=== PATIENT | male | born 1945 | race Caucasian/White ===

== ENCOUNTER → 2017-06-10 | Outpatient (CLI) | payer MEDICARE ==
[~2017-06-10] MED LIST: AMLO10TA2 PO; ASPI-1012 PO; ASPI-1197 PO; CALC600T12 PO; CARV12.511 PO; CHOL100018 PO; GLIM4TAB3 PO; HYDR-309 PO; LOSA100T29 PO; METF10004 PO; PRAV40TA3 PO; TAMS0.4C32 PO; TERA5CAP4 PO; TRAM50TA4 PO
== END | disposition home or self-care (01) ==
LOC: RAH 13:35
PROVIDERS: ATTEND Physical Medicine & Rehabilitation
DX: M48.061 Spinal stenosis, lumbar region without neurogenic claudication (principal); M51.26 Other intervertebral disc displacement, lumbar region; I10 Essential (primary) hypertension; E11.9 Type 2 diabetes mellitus without complications; E03.9 Hypothyroidism, unspecified; E78.5 Hyperlipidemia, unspecified; I25.10 Atherosclerotic heart disease of native coronary artery without angina pectoris
CPT/HCPCS: 72148

== ENCOUNTER → 2017-08-23 | Outpatient (CLI) | payer MEDICARE | END | disposition home or self-care (01) | LOC: RAH 11:30 | PROVIDERS: ATTEND Physical Medicine & Rehabilitation | DX: R22.42 Localized swelling, mass and lump, left lower limb (principal) | CPT/HCPCS: 93971 ==

== ENCOUNTER → 2018-05-09 | Outpatient (CLI) | payer MEDICARE ==
[~2018-05-09] MED LIST changes: -AMLO10TA2 PO; +AMLO10TA7 PO; -HYDR-309 PO; +HYDR-4457 PO; -LOSA100T29 PO; +LOSA100T58 PO; +METF-446 PO; -METF10004 PO
== END | disposition home or self-care (01) ==
LOC: RAH 08:43
PROVIDERS: ATTEND Internal Medicine
DX: I11.9 Hypertensive heart disease without heart failure (principal); I35.1 Nonrheumatic aortic (valve) insufficiency; E87.79 Other fluid overload; I31.3 Pericardial effusion (noninflammatory)
CPT/HCPCS: 93306

== ENCOUNTER → 2018-06-30 | Outpatient (CLI) | payer OTHER | END | disposition home or self-care (01) | LOC: RAH 10:46 | PROVIDERS: ATTEND Internal Medicine Cardiovascular Disease | DX: Z13.6 Encounter for screening for cardiovascular disorders (principal) | CPT/HCPCS: 75571 ==

== ENCOUNTER → 2018-07-06 | Outpatient (CLI) | payer MEDICARE | END | disposition home or self-care (01) | LOC: RAH 14:52 | PROVIDERS: ATTEND Physical Medicine & Rehabilitation | DX: M47.812 Spondylosis without myelopathy or radiculopathy, cervical region (principal); M48.02 Spinal stenosis, cervical region | CPT/HCPCS: 72052 ==

== ENCOUNTER → 2018-08-23 | Outpatient (CLI) | payer MEDICARE ==
[~2018-08-23] VITALS: Ht 188 cm; Wt 122.5 kg
[~2018-08-23] MED LIST changes: +REGADENOSON 0.4 MG/5 ML PF SYG IVP SCH
== END | disposition home or self-care (01) ==
LOC: SHCH 07:51
PROVIDERS: ATTEND Internal Medicine Cardiovascular Disease
DX: I25.9 Chronic ischemic heart disease, unspecified (principal); I25.10 Atherosclerotic heart disease of native coronary artery without angina pectoris
CPT/HCPCS: 78452; 93017; 96374; A9500 ×2; J2785

== ENCOUNTER → 2018-10-03 | Outpatient (CLI) | payer MEDICARE ==
[~2018-10-03] MED LIST changes: -REGADENOSON 0.4 MG/5 ML PF SYG IVP SCH
== END | disposition home or self-care (01) ==
LOC: RAH 09:47
PROVIDERS: ATTEND Internal Medicine
DX: R05 Cough (principal)
CPT/HCPCS: 71046

== ENCOUNTER → 2019-01-04 | Outpatient (CLI) | payer MEDICARE ==
[~2019-01-04] MED LIST changes: -GLIM4TAB3 PO; +GLIM4TAB5 PO; +IOHEXOL-350 50ML VIAL IV ONE
== END | disposition home or self-care (01) ==
LOC: RAH 12:27
PROVIDERS: ATTEND Internal Medicine
DX: R05 Cough (principal); I51.7 Cardiomegaly; Z77.22 Contact with and (suspected) exposure to environmental tobacco smoke (acute) (chronic)
CPT/HCPCS: 71260; Q9967

== ENCOUNTER → 2019-02-09 | Outpatient (CLI) | payer MEDICARE ==
[~2019-02-09] MED LIST changes: -IOHEXOL-350 50ML VIAL IV ONE
== END | disposition home or self-care (01) ==
LOC: RAH 07:10
PROVIDERS: ATTEND Physical Medicine & Rehabilitation
DX: M47.812 Spondylosis without myelopathy or radiculopathy, cervical region (principal); M47.817 Spondylosis without myelopathy or radiculopathy, lumbosacral region; M48.02 Spinal stenosis, cervical region; M48.061 Spinal stenosis, lumbar region without neurogenic claudication
CPT/HCPCS: 72141; 72148

== ENCOUNTER → 2019-05-11 | Outpatient (CLI) | payer MEDICARE ==
[~2019-05-11] MED LIST changes: -ASPI-1012 PO; -CALC600T12 PO; -CHOL100018 PO; +FISH1CAP63 PO; +GABA-531 PO; +GLIM4TAB36 PO; -GLIM4TAB5 PO; -HYDR-4457 PO; +HYDR25TA PO; +MONT10TA26 PO; +PENI500T2 PO; -TAMS0.4C32 PO; -TERA5CAP4 PO; -TRAM50TA4 PO
== END | disposition home or self-care (01) ==
LOC: RAH 11:05
PROVIDERS: ATTEND Physical Medicine & Rehabilitation
DX: I63.81 Other cerebral infarction due to occlusion or stenosis of small artery (principal); I67.82 Cerebral ischemia; G45.9 Transient cerebral ischemic attack, unspecified
CPT/HCPCS: 70551

== ENCOUNTER 2020-01-09 10:32 | Inpatient (IN) | payer MEDICARE ==
[~2020-01-09] VITALS: Ht 188 cm; Wt 113.4 kg
[~2020-01-09 10:32] MED LIST changes: +AMLO-258 PO; -AMLO10TA7 PO; -MONT10TA26 PO; +MONT10TA96 PO
[2020-01-09 11:44] LABS: ABG BASE EXCESS 0.8 mmol/L (-2.0-3.0); ABG HCO3 24.4 mmol/L (21.0-28.0); ABG PCO2 36 mmHg (35-48)
[2020-01-09 11:45] LABS: BASOPHILS % (AUTO) 0.6 % (0.0-5.0); EOSINOPHILS % (AUTO) 0.3 % (0.0-8.0); LYMPHOCYTES % (AUTO) 8.2 % (21.0-51.0); MEAN CORPUSCULAR HEMOGLOBIN 28.8 pg (27.0-33.0); MEAN CORPUSCULAR HGB CONC 32.6 g/dL (32.0-36.0); MEAN CORPUSCULAR VOLUME 88.4 fL (79-99); MONOCYTES % (AUTO) 9.4 % (3.0-13.0); NEUTROPHILS % (AUTO) 81.2 % (40.0-77.0); PLATELET COUNT (AUTO) 167 K/uL (130-400); RED BLOOD CELL COUNT(AUTO) 3.96 MIL/uL (4.50-6.20); RED CELL DISTRIBUTION WIDTH 12.7 % (11.0-15.5); WHITE BLOOD COUNT (AUTO) 8.8 K/uL (4.8-10.8)
[2020-01-09] MEDS ORDERED: METHYLPREDNISOLONE SOD SUCC 125MG/2ML VIAL ONE (11:53)
[2020-01-09 11:57] LABS: PARTIAL THROMBOPLASTIN TIME 28.1 SEC (26.3-35.5); PROTHROMBIN TIME 10.8 SEC (9.6-11.6)
[2020-01-09] MEDS ORDERED: ALBUTEROL INHALER 90MCG/INH IH ONE (11:58)
[2020-01-09] MEDS ORDERED: LEVOFLOXACIN 500 MG/D5W 100 ML 100 ML ONE (11:59)
[2020-01-09] MEDS ORDERED: DEXAMETHASONE SOD PHOSPHATE 10MG/ML 1ML VIAL ONE (11:59)
[2020-01-09] MEDS ORDERED: CEFTRIAXONE SODIUM 1 GM ONE (12:25)
[2020-01-09] MEDS ORDERED: AZITHROMYCIN 500MG+NS 250ML 250 ML IV ONE (12:25)
[2020-01-09] MEDS ORDERED: SODIUM CHLORIDE 0.9% 50 ML IV ONE (12:26)
[2020-01-09 12:38] LABS: ALANINE AMINOTRANSFERASE 43 U/L (12-78); ALBUMIN 3.4 g/dL (3.5-5.0); ASPARTATE AMINOTRANSFERASE 48 U/L (10-37); BILIRUBIN,TOTAL 1.5 mg/dL (0.2-1.0); CARBON DIOXIDE 27 mmol/L (21-32); CHLORIDE 97 mmol/L (101-111); CREATININE 1.7 mg/dL (0.5-1.5); GLOMERULAR FILTR. RATE CALC 42 mL/min (>60); GLUCOSE,RANDOM 144 mg/dL (70-105); MYOGLOBIN 344 ng/mL (10-92); SODIUM SERUM 136 mmol/L (136-145); TOTAL PROTEIN, SERUM 6.9 g/dL (6.0-8.3); TROPONIN I < 0.04 ng/mL (0.00-0.06); UREA NITROGEN, BLOOD 29 mg/dL (7-18)
[2020-01-09] MEDS ORDERED: SODIUM CHLORIDE 0.9% 1000ML 1,000 ML IV ONE (12:41)
[2020-01-09 13:27] LABS: CREATINE KINASE, TOTAL 435 U/L (21-232); POTASSIUM 2.9 mmol/L (3.5-5.1)
[2020-01-09] MEDS ORDERED: PHARMACY COMMUNICATION**REMDESIVIR ORDER MISC SCH (13:30)
[2020-01-09] MEDS ORDERED: DOXYCYCLINE 100MG+NS 250ML IV SCH (13:30)
[2020-01-09] MEDS ORDERED: ERGOCALCIFEROL (VITAMIN D2) 50,000 UNIT CAPSULE PO ONE (13:30)
[2020-01-09 14:42] LABS: ERYTHROCYTE SEDIMENTATION RATE 32 MM/HR (0-20)
[2020-01-09] MEDS ORDERED: ALBUTEROL INHALER 90MCG/INH IH PRN (15:15)
[2020-01-09] MEDS ORDERED: ERGOCALCIFEROL (VITAMIN D2) 50,000 UNIT CAPSULE ONE (15:31)
[2020-01-09] MEDS ORDERED: DOXYCYCLINE 100MG+NS 250ML 250 ML IV ONE (15:31)
[2020-01-09] MEDS ORDERED: SODIUM CHLORIDE 0.9% 500ML 500 ML IV ONE (16:58)
[2020-01-09 17:53] LABS: APPEARANCE,URINE Clear (CLEAR); BILIRUBIN,URINE Negative (NEGATIVE); COLOR,URINE Dark Yellow (YELLOW); GLUCOSE, URINE (UA) 250 mg/dL (NEGATIVE); KETONES,URINE Negative (NEGATIVE); LEUKOCYTE ESTERASE ,URINE Negative (NEGATIVE); NITRATE,URINE Negative (NEGATIVE); OCCULT BLOOD,URINE Negative (NEGATIVE); PH,URINE 5.5 (5.0-8.0); PROTEIN,URINE POS 1+ mg/dL (NEGATIVE)
[2020-01-09 18:02] LABS: RBC,URINE 0-1 /HPF (0-1); WBC,URINE 0-1 /HPF (0-1)
[2020-01-09 18:03] LABS: BACTERIA,URINE Rare /HPF (None Seen)
[2020-01-09 18:04] LABS: HYALINE CASTS, URINE 0-1 /LPF (0-1 /LPF); SQUAMOUS EPITHELIAL CELL,UR Few /HPF (0-2)
[2020-01-09] MEDS ORDERED: ACETYLCYSTEINE 600 MG CAPSULE ONE (20:27)
[2020-01-10] VITALS (15 sets, daily range): BP systolic 142–182; BP diastolic 71–93
[2020-01-10] MEDS ORDERED: CEFTRIAXONE SODIUM 1 GM ONE (00:37)
[2020-01-10] MEDS ORDERED: SODIUM CHLORIDE 0.9% 50 ML IV ONE (00:41)
[2020-01-10 04:59] LABS: BASOPHILS % (AUTO) 0.2 % (0.0-5.0); LYMPHOCYTES % (AUTO) 3.4 % (21.0-51.0); MEAN CORPUSCULAR HEMOGLOBIN 29.2 pg (27.0-33.0); MEAN CORPUSCULAR HGB CONC 33.4 g/dL (32.0-36.0); MEAN CORPUSCULAR VOLUME 87.4 fL (79-99); MONOCYTES % (AUTO) 4.9 % (3.0-13.0); NEUTROPHILS % (AUTO) 91.1 % (40.0-77.0); PLATELET COUNT (AUTO) 188 K/uL (130-400); RED BLOOD CELL COUNT(AUTO) 4.35 MIL/uL (4.50-6.20); RED CELL DISTRIBUTION WIDTH 12.6 % (11.0-15.5); WHITE BLOOD COUNT (AUTO) 12.2 K/uL (4.8-10.8)
[2020-01-10 05:27] LABS: ALBUMIN 3.5 g/dL (3.5-5.0); BILIRUBIN,TOTAL 0.9 mg/dL (0.2-1.0); CREATININE 1.4 mg/dL (0.5-1.5); POTASSIUM 3.1 mmol/L (3.5-5.1); TOTAL PROTEIN, SERUM 7.9 g/dL (6.0-8.3)
[2020-01-10 05:33] LABS: CRP QUANTITATIVE 196.9 mg/L (0.00-9.0)
[2020-01-10] MEDS ORDERED: ENOXAPARIN SODIUM 60 MG/0.6 ML SQ ONE (08:12)
[2020-01-10] MEDS ORDERED: ONDANSETRON HCL 4 MG/2 ML VIAL IVP PRN (08:45)
[2020-01-10] MEDS ORDERED: INSULIN HUMULIN R 100 UNIT/ML 3ML ONE (08:58)
[2020-01-10] MEDS ORDERED: GLUCAGON 1MG KIT 1 MG ML IM PRN (09:15)
[2020-01-10] MEDS ORDERED: DEXTROSE 50%-WATER 50 ML DISP.SYRIN IV PRN (09:15)
[2020-01-10] MEDS: DEXAMETHASONE SOD PHOSPHATE 4 MG/ML 1ML VIAL IVP SCH ×2 (11:26→14:59)
[2020-01-10] MEDS: CEFTRIAXONE SODIUM 1 GM IVP SCH ×3 (11:26→14:59)
[2020-01-10] MEDS: ASCORBIC ACID 500 MG TAB PO SCH (11:27)
[2020-01-10] MEDS: ACETYLCYSTEINE 600 MG CAPSULE PO SCH ×3 (11:27→19:47)
[2020-01-10] MEDS: DOXYCYCLINE 100MG+NS 250ML 250 ML IV SCH ×3 (11:27→14:59)
[2020-01-10] MEDS: ZINC SULFATE 220 CAPSULE PO SCH (11:27)
[2020-01-10] MEDS: ENOXAPARIN SODIUM 60 MG/0.6 ML SQ SCH (11:27)
[2020-01-10] MEDS: INSULIN HUMULIN R 100 UNIT/ML 3ML SQ SCH ×3 (11:30→21:00)
[2020-01-10] MEDS ORDERED: TRAM50TA4 PO (13:39)
[2020-01-10] MEDS ORDERED: OMEG-61 PO (13:39)
[2020-01-10] MEDS ORDERED: CARV12.511 PO (13:39)
[2020-01-10] MEDS ORDERED: PRAV40TA3 PO (13:39)
[2020-01-10] MEDS ORDERED: METH4TAB3 PO (13:39)
[2020-01-10] MEDS ORDERED: AMLO-258 PO (13:39)
[2020-01-10] MEDS ORDERED: GLIM4TAB36 PO (13:39)
[2020-01-10] MEDS ORDERED: METF-446 PO (13:39)
[2020-01-10] MEDS ORDERED: CETI10TA57 PO (13:39)
[2020-01-10] MEDS ORDERED: MELA10TA2 PO (13:39)
[2020-01-10] MEDS ORDERED: HYDR25TA PO (13:39)
[2020-01-10] MEDS ORDERED: ALBU2.5V2 IH (13:39)
[2020-01-10] MEDS ORDERED: LOSA100T58 PO (13:39)
[2020-01-10] MEDS ORDERED: CHOL400C9 PO (13:39)
[2020-01-10] MEDS ORDERED: FLUT15.845 NS (13:39)
[2020-01-10] MEDS ORDERED: AEC81 PO (13:39)
[2020-01-10] MEDS ORDERED: MONT10TA96 PO (13:39)
[2020-01-10] MEDS ORDERED: REMDESIVIR (EUA) 520 200 MG in SODIUM CHLORIDE 0.9% 250 ML IV ONE (14:00)
[2020-01-10] MEDS ORDERED: COMPOUND IV REFRIGERATED 1 EACH IVSOLN MISC PRN (14:00)
[2020-01-10] MEDS ORDERED: DEXMEDETOMIDINE HCL 400 MCG in SODIUM CHLORIDE 0.9% 100 ML IV SCH (14:45)
[2020-01-10] MEDS: POTASSIUM CHLORIDE 20 MEQ ERTAB PO PRN ×2 (15:07→21:32)
[2020-01-10] MEDS ORDERED: FAMOTIDINE 20MG TAB 20 MG TAB ONE (19:30)
[2020-01-10] MEDS: FAMOTIDINE/PF 20 MG/2 ML VIAL IV SCH (19:46)
[2020-01-10] MEDS ORDERED: ENOXAPARIN SODIUM 30 MG/0.3 ML SQ SCH (21:00)
[2020-01-10] MEDS ORDERED: TEMAZEPAM 15 MG CAPSULE PO ONE (21:10)
[2020-01-10] MEDS: LOSARTAN 100 MG TABLET PO SCH (22:28)
[2020-01-10] MEDS: HYDROCHLOROTHIAZIDE 25 MG TABLET PO SCH (22:28)
[2020-01-10] MEDS: CARVEDILOL 12.5 MG TABLET PO SCH (22:28)
[2020-01-10] MEDS: AMLODIPINE BESYLATE 5 MG TAB PO SCH (22:29)
[2020-01-11] VITALS (48 sets, daily range): BP systolic 116–175; BP diastolic 55–108
[2020-01-11] MEDS: DOXYCYCLINE 100MG+NS 250ML 250 ML IV SCH ×2 (02:37→21:16)
[2020-01-11] MEDS: CEFTRIAXONE SODIUM 1 GM IVP SCH ×2 (02:37→21:16)
[2020-01-11] MEDS: POTASSIUM CHLORIDE 20 MEQ ERTAB PO PRN (02:39)
[2020-01-11] MEDS: GUAIFENESIN-DM 200/20 MG 10 ML PO PRN ×2 (03:20→07:52)
[2020-01-11 05:16] LABS: BASOPHILS % (AUTO) 0.2 % (0.0-5.0); EOSINOPHILS % (AUTO) 0.3 % (0.0-8.0); HEMATOCRIT 39.8 % (42-54); LYMPHOCYTES % (AUTO) 2.8 % (21.0-51.0); MEAN CORPUSCULAR HEMOGLOBIN 28.8 pg (27.0-33.0); MEAN CORPUSCULAR HGB CONC 32.7 g/dL (32.0-36.0); MEAN CORPUSCULAR VOLUME 88.2 fL (79-99); MONOCYTES % (AUTO) 3.7 % (3.0-13.0); NEUTROPHILS % (AUTO) 92.2 % (40.0-77.0); PLATELET COUNT (AUTO) 224 K/uL (130-400); RED BLOOD CELL COUNT(AUTO) 4.51 MIL/uL (4.50-6.20); RED CELL DISTRIBUTION WIDTH 12.7 % (11.0-15.5); WHITE BLOOD COUNT (AUTO) 15.6 K/uL (4.8-10.8)
[2020-01-11 05:36] LABS: ALBUMIN 2.9 g/dL (3.5-5.0); BILIRUBIN,TOTAL 0.8 mg/dL (0.2-1.0); CREATININE 1.2 mg/dL (0.5-1.5); TOTAL PROTEIN, SERUM 6.8 g/dL (6.0-8.3)
[2020-01-11 05:46] LABS: POTASSIUM 2.8 mmol/L (3.5-5.1)
[2020-01-11] MEDS ORDERED: PHARMACY COMMUNICATION MISC SCH (06:00)
[2020-01-11 06:06] LABS: CRP QUANTITATIVE 246.4 mg/L (0.00-9.0)
[2020-01-11] MEDS: POTASSIUM CHLORIDE 20MEQ/100ML 100 ML IV PRN ×4 (06:12→18:27)
[2020-01-11] MEDS: INSULIN HUMULIN R 100 UNIT/ML 3ML SQ SCH ×4 (06:19→21:38)
[2020-01-11 07:24] LABS: ABG PCO2 35 mmHg (35-48)
[2020-01-11] MEDS: FAMOTIDINE/PF 20 MG/2 ML VIAL IV SCH ×2 (07:49→21:16)
[2020-01-11] MEDS: ENOXAPARIN SODIUM 60 MG/0.6 ML SQ SCH (07:51)
[2020-01-11] MEDS: ASCORBIC ACID 500 MG TAB PO SCH (07:52)
[2020-01-11] MEDS: AMLODIPINE BESYLATE 5 MG TAB PO SCH (07:53)
[2020-01-11] MEDS: ZINC SULFATE 220 CAPSULE PO SCH (07:53)
[2020-01-11] MEDS: ACETYLCYSTEINE 600 MG CAPSULE PO SCH ×2 (07:54→21:17)
[2020-01-11] MEDS: HYDROCHLOROTHIAZIDE 25 MG TABLET PO SCH (07:54)
[2020-01-11] MEDS: CARVEDILOL 12.5 MG TABLET PO SCH ×2 (07:56→21:17)
[2020-01-11] MEDS: LOSARTAN 100 MG TABLET PO SCH (07:56)
[2020-01-11 08:24] LABS: ALBUMIN 2.9 g/dL (3.5-5.0); BILIRUBIN,DIRECT 0.3 mg/dL (0.0-0.3); BILIRUBIN,TOTAL 0.9 mg/dL (0.2-1.0); CREATININE 1.2 mg/dL (0.5-1.5); TOTAL PROTEIN, SERUM 5.9 g/dL (6.0-8.3)
[2020-01-11] MEDS ORDERED: HYDROCHLOROTHIAZIDE 25 MG TABLET PO SCH (09:00)
[2020-01-11] MEDS ORDERED: NON-FORMULARY MEDICATION 1 EACH (Amlodipine Besylate 10 MG) PO SCH (09:00)
[2020-01-11] MEDS ORDERED: AMLODIPINE BESYLATE 5 MG TAB PO SCH (09:00)
[2020-01-11] MEDS ORDERED: CARVEDILOL 12.5 MG TABLET PO SCH (09:00)
[2020-01-11] MEDS ORDERED: LOSARTAN 100 MG TABLET PO SCH (09:00)
[2020-01-11] MEDS: LIDOCAINE HCL-MPF 1% 2ML VIAL IV PRN (10:00)
[2020-01-11] MEDS: DEXAMETHASONE SOD PHOSPHATE 4 MG/ML 1ML VIAL IVP SCH (13:30)
[2020-01-11] MEDS: REMDESIVIR (EUA) 520 100 MG in SODIUM CHLORIDE 0.9% 250 ML IV SCH (14:20)
[2020-01-11] MEDS: ENOXAPARIN SODIUM 40 MG/0.4 ML SYRINGE SQ SCH (21:17)
[2020-01-12] VITALS (33 sets, daily range): BP systolic 129–176; BP diastolic 59–111
[2020-01-12 04:12] LABS: BASOPHILS % (AUTO) 0.1 % (0.0-5.0); HEMATOCRIT 38.4 % (42-54); LYMPHOCYTES % (AUTO) 2.3 % (21.0-51.0); MEAN CORPUSCULAR HEMOGLOBIN 28.8 pg (27.0-33.0); MEAN CORPUSCULAR HGB CONC 33.3 g/dL (32.0-36.0); MEAN CORPUSCULAR VOLUME 86.5 fL (79-99); MONOCYTES % (AUTO) 4.1 % (3.0-13.0); NEUTROPHILS % (AUTO) 92.9 % (40.0-77.0); PLATELET COUNT (AUTO) 243 K/uL (130-400); RED BLOOD CELL COUNT(AUTO) 4.44 MIL/uL (4.50-6.20); RED CELL DISTRIBUTION WIDTH 12.4 % (11.0-15.5); WHITE BLOOD COUNT (AUTO) 14.1 K/uL (4.8-10.8)
[2020-01-12 04:45] LABS: ALBUMIN 2.8 g/dL (3.5-5.0); BILIRUBIN,TOTAL 0.7 mg/dL (0.2-1.0); CREATININE 1.2 mg/dL (0.5-1.5); TOTAL PROTEIN, SERUM 6.5 g/dL (6.0-8.3)
[2020-01-12 05:06] LABS: POTASSIUM 2.9 mmol/L (3.5-5.1)
[2020-01-12] MEDS: POTASSIUM CHLORIDE 10% ELIXIR 20 MEQ/15 ML UDCUP PO PRN (05:25)
[2020-01-12] MEDS: INSULIN HUMULIN R 100 UNIT/ML 3ML SQ SCH ×4 (06:22→21:00)
[2020-01-12] MEDS: DOXYCYCLINE 100MG+NS 250ML 250 ML IV SCH ×2 (10:12→21:04)
[2020-01-12] MEDS: CEFTRIAXONE SODIUM 1 GM IVP SCH ×2 (10:14→21:04)
[2020-01-12] MEDS: ACETYLCYSTEINE 600 MG CAPSULE PO SCH ×2 (10:15→21:03)
[2020-01-12] MEDS: FAMOTIDINE/PF 20 MG/2 ML VIAL IV SCH ×2 (10:15→21:04)
[2020-01-12] MEDS: ASCORBIC ACID 500 MG TAB PO SCH (10:15)
[2020-01-12] MEDS: AMLODIPINE BESYLATE 5 MG TAB PO SCH (10:16)
[2020-01-12] MEDS: ENOXAPARIN SODIUM 40 MG/0.4 ML SYRINGE SQ SCH ×2 (10:16→21:06)
[2020-01-12] MEDS: CARVEDILOL 12.5 MG TABLET PO SCH ×2 (10:18→21:03)
[2020-01-12] MEDS: ZINC SULFATE 220 CAPSULE PO SCH (10:21)
[2020-01-12] MEDS: METFORMIN HCL 500 MG TABLET PO SCH ×2 (12:08→17:12)
[2020-01-12] MEDS: HYDROCHLOROTHIAZIDE 25 MG TABLET PO SCH (12:08)
[2020-01-12] MEDS: LOSARTAN 100 MG TABLET PO SCH (12:08)
[2020-01-12] MEDS: DOXAZOSIN MESYLATE 2 MG TABLET PO SCH (12:23)
[2020-01-12] MEDS: DEXAMETHASONE SOD PHOSPHATE 4 MG/ML 1ML VIAL IVP SCH (13:19)
[2020-01-12] MEDS: REMDESIVIR (EUA) 520 100 MG in SODIUM CHLORIDE 0.9% 250 ML IV SCH (15:14)
[2020-01-12] MEDS: MONTELUKAST SODIUM 10 MG TAB PO SCH (21:04)
[2020-01-12] MEDS: CLONAZEPAM 0.5 MG TABLET PO SCH (21:04)
[2020-01-13] VITALS (63 sets, daily range): BP systolic 99–165; BP diastolic 45–90
[2020-01-13 04:50] LABS: ABG BASE EXCESS -0.3 mmol/L (-2.0-3.0); ABG HCO3 22.8 mmol/L (21.0-28.0); ABG OXYGEN SATURATION 83.9 % (95.0-99.0); ABG PCO2 33 mmHg (35-48)
[2020-01-13 05:44] LABS: CRP QUANTITATIVE 178.6 mg/L (0.00-9.0); MAGNESIUM 2.1 mg/dL (1.80-2.40)
[2020-01-13] MEDS ORDERED: NOREPINEPHRINE 4MG/NS 250ML 250 ML IV PRN (06:30)
[2020-01-13] MEDS ORDERED: LACTATED RINGERS 1000ML IV SCH (06:30)
[2020-01-13] MEDS ORDERED: DOPAMINE HCL 400 MG/D5%-WATER 250 ML IV PRN (06:30)
[2020-01-13] MEDS ORDERED: FENTANYL CITRATE PF 0.05 MG/ML 1,000 MCG in SODIUM CHLORIDE 0.9% 100 ML IVPB SCH (06:30)
[2020-01-13] MEDS: INSULIN HUMULIN R 100 UNIT/ML 3ML SQ SCH ×4 (07:30→21:00)
[2020-01-13] MEDS: METFORMIN HCL 500 MG TABLET PO SCH ×2 (08:00→17:00)
[2020-01-13] MEDS ORDERED: LACTATED RINGERS 1000ML 1,000 ML IV SCH (08:45)
[2020-01-13] MEDS ORDERED: LACTATED RINGERS 1000ML 250 ML IV SCH (08:45)
[2020-01-13] MEDS: CLONAZEPAM 0.5 MG TABLET PO SCH ×2 (09:00→21:00)
[2020-01-13] MEDS: LOSARTAN 100 MG TABLET PO SCH (09:00)
[2020-01-13] MEDS: DOXAZOSIN MESYLATE 2 MG TABLET PO SCH (09:00)
[2020-01-13] MEDS: HYDROCHLOROTHIAZIDE 25 MG TABLET PO SCH (09:00)
[2020-01-13] MEDS: AMLODIPINE BESYLATE 5 MG TAB PO SCH (09:00)
[2020-01-13] MEDS: CARVEDILOL 12.5 MG TABLET PO SCH ×2 (09:00→21:00)
[2020-01-13] MEDS ORDERED: FENTANYL 2500MCG+NS 250ML 250 ML IV SCH (09:00)
[2020-01-13] MEDS: ASCORBIC ACID 500 MG TAB PO SCH (09:00)
[2020-01-13] MEDS: ACETYLCYSTEINE 600 MG CAPSULE PO SCH ×2 (09:00→21:00)
[2020-01-13] MEDS: ZINC SULFATE 220 CAPSULE PO SCH (09:00)
[2020-01-13 09:14] LABS: BASOPHILS % (AUTO) 0.1 % (0.0-5.0); HEMATOCRIT 40.1 % (42-54); LYMPHOCYTES % (AUTO) 2.7 % (21.0-51.0); MEAN CORPUSCULAR HEMOGLOBIN 28.8 pg (27.0-33.0); MEAN CORPUSCULAR HGB CONC 32.4 g/dL (32.0-36.0); MEAN CORPUSCULAR VOLUME 88.7 fL (79-99); MONOCYTES % (AUTO) 4.4 % (3.0-13.0); NEUTROPHILS % (AUTO) 92.3 % (40.0-77.0); PLATELET COUNT (AUTO) 292 K/uL (130-400); RED BLOOD CELL COUNT(AUTO) 4.52 MIL/uL (4.50-6.20); RED CELL DISTRIBUTION WIDTH 12.8 % (11.0-15.5); WHITE BLOOD COUNT (AUTO) 14.6 K/uL (4.8-10.8)
[2020-01-13 09:37] LABS: ALBUMIN 2.7 g/dL (3.5-5.0); BILIRUBIN,TOTAL 0.5 mg/dL (0.2-1.0); PHOSPHORUS 4.4 mg/dL (2.5-4.9); TOTAL PROTEIN, SERUM 6.3 g/dL (6.0-8.3)
[2020-01-13] MEDS: CEFTRIAXONE SODIUM 1 GM IVP SCH ×2 (09:59→21:55)
[2020-01-13] MEDS: FAMOTIDINE/PF 20 MG/2 ML VIAL IV SCH ×2 (09:59→21:55)
[2020-01-13] MEDS: DOXYCYCLINE 100MG+NS 250ML 250 ML IV SCH ×2 (10:00→21:55)
[2020-01-13] MEDS: ENOXAPARIN SODIUM 40 MG/0.4 ML SYRINGE SQ SCH ×2 (10:00→21:59)
[2020-01-13 10:02] LABS: B-TYPE NATRIURETIC PEPTIDE 101 pg/mL (0-100)
[2020-01-13 10:05] LABS: CREATININE 1.3 mg/dL (0.5-1.5); POTASSIUM 2.6 mmol/L (3.5-5.1)
[2020-01-13] MEDS: LIDOCAINE HCL-MPF 1% 2ML VIAL IV PRN ×2 (10:13→14:37)
[2020-01-13] MEDS: POTASSIUM CHLORIDE 20MEQ/100ML 100 ML IV PRN ×4 (10:13→18:15)
[2020-01-13] MEDS: DEXMEDETOMIDINE HCL 400 MCG in SODIUM CHLORIDE 0.9% 100 ML IV PRN ×2 (12:43→21:25)
[2020-01-13] MEDS: DEXAMETHASONE SOD PHOSPHATE 4 MG/ML 1ML VIAL IVP SCH (12:43)
[2020-01-13] MEDS: REMDESIVIR (EUA) 520 100 MG in SODIUM CHLORIDE 0.9% 250 ML IV SCH (14:37)
[2020-01-13] MEDS ORDERED: DEXMEDETOMIDINE HCL 1,000 MCG in SODIUM CHLORIDE 0.9% 250 ML IV PRN (18:00)
[2020-01-13] MEDS: MONTELUKAST SODIUM 10 MG TAB PO SCH (21:00)
[2020-01-14] VITALS (20 sets, daily range): BP systolic 122–155; BP diastolic 46–87
[2020-01-14 03:59] LABS: ABG BASE EXCESS -3.7 mmol/L (-2.0-3.0); ABG HCO3 19.6 mmol/L (21.0-28.0); ABG OXYGEN SATURATION 98.9 % (95.0-99.0); ABG PCO2 31 mmHg (35-48)
[2020-01-14 04:26] LABS: BASOPHILS % (AUTO) 0.1 % (0.0-5.0); HEMATOCRIT 36.9 % (42-54); LYMPHOCYTES % (AUTO) 3.2 % (21.0-51.0); MEAN CORPUSCULAR HEMOGLOBIN 28.8 pg (27.0-33.0); MEAN CORPUSCULAR HGB CONC 33.1 g/dL (32.0-36.0); NEUTROPHILS % (AUTO) 89.2 % (40.0-77.0); PLATELET COUNT (AUTO) 275 K/uL (130-400); RED BLOOD CELL COUNT(AUTO) 4.24 MIL/uL (4.50-6.20); RED CELL DISTRIBUTION WIDTH 12.7 % (11.0-15.5); WHITE BLOOD COUNT (AUTO) 12.6 K/uL (4.8-10.8)
[2020-01-14 04:43] LABS: ALBUMIN 2.5 g/dL (3.5-5.0); BILIRUBIN,DIRECT 0.1 mg/dL (0.0-0.3); BILIRUBIN,TOTAL 0.5 mg/dL (0.2-1.0); CREATININE 1.4 mg/dL (0.5-1.5); CRP QUANTITATIVE 122.8 mg/L (0.00-9.0); MAGNESIUM 2.3 mg/dL (1.80-2.40); POTASSIUM 3.8 mmol/L (3.5-5.1); TOTAL PROTEIN, SERUM 6.2 g/dL (6.0-8.3)
[2020-01-14] MEDS: METFORMIN HCL 500 MG TABLET PO SCH (08:00)
[2020-01-14] MEDS: FAMOTIDINE/PF 20 MG/2 ML VIAL IV SCH ×2 (08:28→19:47)
[2020-01-14] MEDS: CEFTRIAXONE SODIUM 1 GM IVP SCH ×2 (08:29→20:21)
[2020-01-14] MEDS: ENOXAPARIN SODIUM 40 MG/0.4 ML SYRINGE SQ SCH (08:29)
[2020-01-14] MEDS: DOXYCYCLINE 100MG+NS 250ML 250 ML IV SCH ×2 (08:29→19:47)
[2020-01-14] MEDS: AMLODIPINE BESYLATE 5 MG TAB PO SCH (09:00)
[2020-01-14] MEDS: LOSARTAN 100 MG TABLET PO SCH (09:00)
[2020-01-14] MEDS: ZINC SULFATE 220 CAPSULE PO SCH (09:00)
[2020-01-14] MEDS: DOXAZOSIN MESYLATE 2 MG TABLET PO SCH (09:00)
[2020-01-14] MEDS: CLONAZEPAM 0.5 MG TABLET PO SCH ×3 (09:00→19:49)
[2020-01-14] MEDS: ASCORBIC ACID 500 MG TAB PO SCH (09:00)
[2020-01-14] MEDS: CARVEDILOL 12.5 MG TABLET PO SCH (09:00)
[2020-01-14] MEDS: HYDROCHLOROTHIAZIDE 25 MG TABLET PO SCH (09:00)
[2020-01-14] MEDS: ACETYLCYSTEINE 600 MG CAPSULE PO SCH ×2 (09:00→19:48)
[2020-01-14] MEDS: INSULIN HUMULIN R 100 UNIT/ML 3ML SQ SCH ×4 (11:30→20:47)
[2020-01-14] MEDS ORDERED: DEXMEDETOMIDINE HCL 1,000 MCG in SODIUM CHLORIDE 0.9% 250 ML IV PRN (13:28)
[2020-01-14] MEDS: REMDESIVIR (EUA) 520 100 MG in SODIUM CHLORIDE 0.9% 250 ML IV SCH (15:01)
[2020-01-14] MEDS: DEXAMETHASONE SOD PHOSPHATE 4 MG/ML 1ML VIAL IVP SCH (15:34)
[2020-01-14] MEDS: MONTELUKAST SODIUM 10 MG TAB PO SCH (19:48)
[2020-01-14] MEDS: ENOXAPARIN SODIUM 80 MG/0.8 ML SQ SCH (19:49)
[2020-01-15] VITALS (24 sets, daily range): BP systolic 62–200; BP diastolic 29–104
[2020-01-15 04:29] LABS: ALBUMIN 2.4 g/dL (3.5-5.0); BILIRUBIN,DIRECT 0.1 mg/dL (0.0-0.3); BILIRUBIN,TOTAL 0.6 mg/dL (0.2-1.0); CREATININE 1.2 mg/dL (0.5-1.5); CRP QUANTITATIVE 121.4 mg/L (0.00-9.0); MAGNESIUM 3.6 mg/dL (1.80-2.40); POTASSIUM 3.5 mmol/L (3.5-5.1); TOTAL PROTEIN, SERUM 5.9 g/dL (6.0-8.3)
[2020-01-15 04:33] LABS: BASOPHILS % (AUTO) 0.1 % (0.0-5.0); EOSINOPHILS % (AUTO) 0.1 % (0.0-8.0); HEMATOCRIT 38.4 % (42-54); MEAN CORPUSCULAR HEMOGLOBIN 28.8 pg (27.0-33.0); MEAN CORPUSCULAR HGB CONC 32.8 g/dL (32.0-36.0); MEAN CORPUSCULAR VOLUME 87.9 fL (79-99); MONOCYTES % (AUTO) 5.3 % (3.0-13.0); NEUTROPHILS % (AUTO) 90.7 % (40.0-77.0); PLATELET COUNT (AUTO) 252 K/uL (130-400); RED BLOOD CELL COUNT(AUTO) 4.37 MIL/uL (4.50-6.20); RED CELL DISTRIBUTION WIDTH 12.6 % (11.0-15.5); WHITE BLOOD COUNT (AUTO) 10.9 K/uL (4.8-10.8)
[2020-01-15] MEDS: INSULIN HUMULIN R 100 UNIT/ML 3ML SQ SCH ×4 (06:22→22:11)
[2020-01-15] MEDS ORDERED: DEXMEDETOMIDINE HCL 1,000 MCG in SODIUM CHLORIDE 0.9% 250 ML IV PRN (07:30)
[2020-01-15] MEDS: DOXAZOSIN MESYLATE 2 MG TABLET PO SCH (09:00)
[2020-01-15] MEDS: HYDROCHLOROTHIAZIDE 25 MG TABLET PO SCH (09:34)
[2020-01-15] MEDS: DOXYCYCLINE 100MG+NS 250ML 250 ML IV SCH ×2 (09:35→19:18)
[2020-01-15] MEDS: FAMOTIDINE/PF 20 MG/2 ML VIAL IV SCH ×2 (09:35→19:19)
[2020-01-15] MEDS: ACETYLCYSTEINE 600 MG CAPSULE PO SCH ×2 (09:35→19:19)
[2020-01-15] MEDS: ASCORBIC ACID 500 MG TAB PO SCH (09:35)
[2020-01-15] MEDS: ZINC SULFATE 220 CAPSULE PO SCH (09:35)
[2020-01-15] MEDS: AMLODIPINE BESYLATE 5 MG TAB PO SCH (09:35)
[2020-01-15] MEDS: CEFTRIAXONE SODIUM 1 GM IVP SCH ×2 (09:35→19:19)
[2020-01-15] MEDS: LOSARTAN 100 MG TABLET PO SCH (09:35)
[2020-01-15] MEDS: CLONAZEPAM 0.5 MG TABLET PO SCH ×2 (09:35→19:19)
[2020-01-15] MEDS: ENOXAPARIN SODIUM 80 MG/0.8 ML SQ SCH ×2 (09:36→19:19)
[2020-01-15] MEDS: DEXAMETHASONE SOD PHOSPHATE 4 MG/ML 1ML VIAL IVP SCH (13:52)
[2020-01-15] MEDS ORDERED: SODIUM CHLORIDE 0.9% 250 ML IV ONE (18:05)
[2020-01-15] MEDS: POTASSIUM CHLORIDE 20MEQ/100ML 100 ML IV PRN (18:07)
[2020-01-15] MEDS ORDERED: DEXMEDETOMIDINE HCL 1,000 MCG in SODIUM CHLORIDE 0.9% 250 ML IV SCH (18:45)
[2020-01-15] MEDS: MONTELUKAST SODIUM 10 MG TAB PO SCH (19:19)
[2020-01-15] MEDS: FUROSEMIDE 10 MG/ML 2ML VIAL IV SCH (20:40)
[2020-01-16] VITALS (11 sets, daily range): BP systolic 111–152; BP diastolic 58–98
[2020-01-16 04:11] LABS: BASOPHILS % (AUTO) 0.1 % (0.0-5.0); HEMATOCRIT 38.6 % (42-54); MEAN CORPUSCULAR HGB CONC 32.6 g/dL (32.0-36.0); MEAN CORPUSCULAR VOLUME 88.9 fL (79-99); NEUTROPHILS % (AUTO) 89.7 % (40.0-77.0); PLATELET COUNT (AUTO) 284 K/uL (130-400); RED BLOOD CELL COUNT(AUTO) 4.34 MIL/uL (4.50-6.20); RED CELL DISTRIBUTION WIDTH 12.9 % (11.0-15.5)
[2020-01-16 04:20] LABS: CARBON DIOXIDE 26 mmol/L (21-32); CHLORIDE 117 mmol/L (101-111); CREATININE 1.2 mg/dL (0.5-1.5); GLOMERULAR FILTR. RATE CALC 63 mL/min (>60); GLUCOSE,RANDOM 209 mg/dL (70-105); POTASSIUM 3.7 mmol/L (3.5-5.1); SODIUM SERUM 153 mmol/L (136-145); UREA NITROGEN, BLOOD 49 mg/dL (7-18)
[2020-01-16] MEDS: FUROSEMIDE 10 MG/ML 2ML VIAL IV SCH ×3 (04:42→20:06)
[2020-01-16] MEDS: INSULIN HUMULIN R 100 UNIT/ML 3ML SQ SCH ×4 (06:07→21:00)
[2020-01-16] MEDS: DOXYCYCLINE 100MG+NS 250ML 250 ML IV SCH ×2 (08:47→20:06)
[2020-01-16] MEDS: ACETYLCYSTEINE 600 MG CAPSULE PO SCH ×2 (08:48→20:06)
[2020-01-16] MEDS: ASCORBIC ACID 500 MG TAB PO SCH (08:48)
[2020-01-16] MEDS: CEFTRIAXONE SODIUM 1 GM IVP SCH ×2 (08:48→20:06)
[2020-01-16] MEDS: ZINC SULFATE 220 CAPSULE PO SCH (08:48)
[2020-01-16] MEDS: AMLODIPINE BESYLATE 5 MG TAB PO SCH (08:48)
[2020-01-16] MEDS: FAMOTIDINE/PF 20 MG/2 ML VIAL IV SCH ×2 (08:48→20:06)
[2020-01-16] MEDS: CLONAZEPAM 0.5 MG TABLET PO SCH ×2 (08:49→20:06)
[2020-01-16] MEDS: HYDROCHLOROTHIAZIDE 25 MG TABLET PO SCH (08:49)
[2020-01-16] MEDS: LOSARTAN 100 MG TABLET PO SCH (08:49)
[2020-01-16] MEDS: ENOXAPARIN SODIUM 80 MG/0.8 ML SQ SCH ×2 (08:50→20:07)
[2020-01-16] MEDS: DOXAZOSIN MESYLATE 2 MG TABLET PO SCH (09:00)
[2020-01-16] MEDS: DEXAMETHASONE SOD PHOSPHATE 4 MG/ML 1ML VIAL IVP SCH (14:48)
[2020-01-16] MEDS ORDERED: DEXMEDETOMIDINE HCL 400 MCG in SODIUM CHLORIDE 0.9% 100 ML IV PRN (15:30)
[2020-01-16] MEDS ORDERED: DEXTROSE 5%-WATER 1,000 ML IV SCH (15:30)
[2020-01-16] MEDS: DEXTROSE 5 %-0.225 % NACL 500 ML IV SCH (18:00)
[2020-01-16] MEDS: MONTELUKAST SODIUM 10 MG TAB PO SCH (20:06)
[2020-01-17] VITALS (21 sets, daily range): BP systolic 105–162; BP diastolic 48–87
[2020-01-17] MEDS: DEXTROSE 5 %-0.225 % NACL 500 ML IV SCH ×3 (00:40→14:00)
[2020-01-17] MEDS: FUROSEMIDE 10 MG/ML 2ML VIAL IV SCH ×3 (03:27→20:30)
[2020-01-17] MEDS: FAMOTIDINE/PF 20 MG/2 ML VIAL IV SCH ×2 (05:06→20:30)
[2020-01-17 05:21] LABS: BASOPHILS % (AUTO) 0.2 % (0.0-5.0); EOSINOPHILS % (AUTO) 0.1 % (0.0-8.0); HEMATOCRIT 41.9 % (42-54); LYMPHOCYTES % (AUTO) 3.3 % (21.0-51.0); MEAN CORPUSCULAR HEMOGLOBIN 28.5 pg (27.0-33.0); MEAN CORPUSCULAR VOLUME 89.1 fL (79-99); MONOCYTES % (AUTO) 3.4 % (3.0-13.0); NEUTROPHILS % (AUTO) 91.9 % (40.0-77.0); PLATELET COUNT (AUTO) 289 K/uL (130-400); RED CELL DISTRIBUTION WIDTH 12.8 % (11.0-15.5); WHITE BLOOD COUNT (AUTO) 10.6 K/uL (4.8-10.8)
[2020-01-17 06:01] LABS: ALANINE AMINOTRANSFERASE 68 U/L (12-78); ALBUMIN 2.3 g/dL (3.5-5.0); ASPARTATE AMINOTRANSFERASE 39 U/L (10-37); BILIRUBIN,TOTAL 0.6 mg/dL (0.2-1.0); CARBON DIOXIDE 24 mmol/L (21-32); CHLORIDE 113 mmol/L (101-111); CREATININE 1.1 mg/dL (0.5-1.5); GLOMERULAR FILTR. RATE CALC 69 mL/min (>60); GLUCOSE,RANDOM 194 mg/dL (70-105); LACTATE DEHYDROGENASE 547 U/L (81-234); POTASSIUM 3.4 mmol/L (3.5-5.1); SODIUM SERUM 148 mmol/L (136-145); TOTAL PROTEIN, SERUM 6.1 g/dL (6.0-8.3); UREA NITROGEN, BLOOD 42 mg/dL (7-18)
[2020-01-17] MEDS: INSULIN HUMULIN R 100 UNIT/ML 3ML SQ SCH ×4 (06:56→20:30)
[2020-01-17] MEDS: AMLODIPINE BESYLATE 5 MG TAB PO SCH (07:51)
[2020-01-17] MEDS: ACETYLCYSTEINE 600 MG CAPSULE PO SCH ×2 (07:51→20:30)
[2020-01-17] MEDS: CLONAZEPAM 0.5 MG TABLET PO SCH ×2 (07:51→20:30)
[2020-01-17] MEDS: LOSARTAN 100 MG TABLET PO SCH (07:52)
[2020-01-17] MEDS: HYDROCHLOROTHIAZIDE 25 MG TABLET PO SCH (07:52)
[2020-01-17] MEDS: ZINC SULFATE 220 CAPSULE PO SCH (07:52)
[2020-01-17] MEDS: ENOXAPARIN SODIUM 80 MG/0.8 ML SQ SCH ×2 (07:52→20:30)
[2020-01-17] MEDS: ASCORBIC ACID 500 MG TAB PO SCH (07:52)
[2020-01-17] MEDS: DOXAZOSIN MESYLATE 2 MG TABLET PO SCH (07:53)
[2020-01-17 08:46] LABS: INR 1.11 (0.85-1.15); PARTIAL THROMBOPLASTIN TIME 27.8 SEC (26.3-35.5); PROTHROMBIN TIME 11.9 SEC (9.6-11.6)
[2020-01-17] MEDS: DEXAMETHASONE SOD PHOSPHATE 4 MG/ML 1ML VIAL IVP SCH (13:34)
[2020-01-17] MEDS: MONTELUKAST SODIUM 10 MG TAB PO SCH (20:30)
[2020-01-18] VITALS (22 sets, daily range): BP systolic 121–180; BP diastolic 58–97
[2020-01-18] MEDS: FUROSEMIDE 10 MG/ML 2ML VIAL IV SCH ×3 (04:03→19:44)
[2020-01-18 04:16] LABS: BASOPHILS % (AUTO) 0.1 % (0.0-5.0); EOSINOPHILS % (AUTO) 0.9 % (0.0-8.0); HEMATOCRIT 39.6 % (42-54); LYMPHOCYTES % (AUTO) 4.5 % (21.0-51.0); MEAN CORPUSCULAR HEMOGLOBIN 28.7 pg (27.0-33.0); MEAN CORPUSCULAR HGB CONC 32.6 g/dL (32.0-36.0); MONOCYTES % (AUTO) 3.9 % (3.0-13.0); NEUTROPHILS % (AUTO) 88.9 % (40.0-77.0); NUCLEATED RED BLOOD CELLS 0.2 % (0.0-0.19); PLATELET COUNT (AUTO) 315 K/uL (130-400); RED CELL DISTRIBUTION WIDTH 12.9 % (11.0-15.5); WHITE BLOOD COUNT (AUTO) 9.6 K/uL (4.8-10.8)
[2020-01-18 05:00] LABS: ALBUMIN 2.1 g/dL (3.5-5.0); BILIRUBIN,TOTAL 0.7 mg/dL (0.2-1.0); CREATININE 1.1 mg/dL (0.5-1.5); CRP QUANTITATIVE 61.9 mg/L (0.00-9.0); POTASSIUM 3.1 mmol/L (3.5-5.1); TOTAL PROTEIN, SERUM 5.7 g/dL (6.0-8.3)
[2020-01-18] MEDS: INSULIN HUMULIN R 100 UNIT/ML 3ML SQ SCH ×4 (06:11→22:14)
[2020-01-18] MEDS: CLONAZEPAM 0.5 MG TABLET PO SCH ×2 (08:37→19:44)
[2020-01-18] MEDS: FAMOTIDINE/PF 20 MG/2 ML VIAL IV SCH ×2 (08:37→19:44)
[2020-01-18] MEDS: ENOXAPARIN SODIUM 80 MG/0.8 ML SQ SCH ×2 (08:38→19:48)
[2020-01-18] MEDS: LOSARTAN 100 MG TABLET PO SCH (08:39)
[2020-01-18] MEDS: AMLODIPINE BESYLATE 5 MG TAB PO SCH (08:39)
[2020-01-18] MEDS: HYDROCHLOROTHIAZIDE 25 MG TABLET PO SCH (08:39)
[2020-01-18] MEDS: ZINC SULFATE 220 CAPSULE PO SCH (08:39)
[2020-01-18] MEDS: ASCORBIC ACID 500 MG TAB PO SCH (08:40)
[2020-01-18] MEDS: DOXAZOSIN MESYLATE 2 MG TABLET PO SCH (08:40)
[2020-01-18] MEDS: ACETYLCYSTEINE 600 MG CAPSULE PO SCH ×2 (09:26→19:44)
[2020-01-18] MEDS: DEXAMETHASONE SOD PHOSPHATE 4 MG/ML 1ML VIAL IVP SCH (11:28)
[2020-01-18] MEDS: MONTELUKAST SODIUM 10 MG TAB PO SCH (19:45)
[2020-01-19] VITALS (27 sets, daily range): BP systolic 88–162; BP diastolic 48–91
[2020-01-19 04:44] LABS: BASOPHILS % (AUTO) 0.2 % (0.0-5.0); EOSINOPHILS % (AUTO) 1.1 % (0.0-8.0); HEMATOCRIT 41.1 % (42-54); LYMPHOCYTES % (AUTO) 4.2 % (21.0-51.0); MEAN CORPUSCULAR HEMOGLOBIN 28.9 pg (27.0-33.0); MEAN CORPUSCULAR HGB CONC 32.6 g/dL (32.0-36.0); MEAN CORPUSCULAR VOLUME 88.8 fL (79-99); MONOCYTES % (AUTO) 2.7 % (3.0-13.0); NEUTROPHILS % (AUTO) 89.8 % (40.0-77.0); NUCLEATED RED BLOOD CELLS 0.2 % (0.0-0.19); PLATELET COUNT (AUTO) 300 K/uL (130-400); RED BLOOD CELL COUNT(AUTO) 4.63 MIL/uL (4.50-6.20); RED CELL DISTRIBUTION WIDTH 13.1 % (11.0-15.5); WHITE BLOOD COUNT (AUTO) 10.5 K/uL (4.8-10.8)
[2020-01-19 05:06] LABS: ALBUMIN 2.1 g/dL (3.5-5.0); BILIRUBIN,TOTAL 0.7 mg/dL (0.2-1.0); CREATININE 1.3 mg/dL (0.5-1.5); CRP QUANTITATIVE 145.3 mg/L (0.00-9.0); POTASSIUM 3.4 mmol/L (3.5-5.1)
[2020-01-19] MEDS: FUROSEMIDE 10 MG/ML 2ML VIAL IV SCH ×3 (05:29→20:03)
[2020-01-19] MEDS: INSULIN HUMULIN R 100 UNIT/ML 3ML SQ SCH ×4 (06:42→22:16)
[2020-01-19] MEDS: LOSARTAN 100 MG TABLET PO SCH (09:11)
[2020-01-19] MEDS: ASCORBIC ACID 500 MG TAB PO SCH (09:11)
[2020-01-19] MEDS: FAMOTIDINE/PF 20 MG/2 ML VIAL IV SCH ×2 (09:11→20:02)
[2020-01-19] MEDS: ACETYLCYSTEINE 600 MG CAPSULE PO SCH ×2 (09:11→20:03)
[2020-01-19] MEDS: CLONAZEPAM 0.5 MG TABLET PO SCH ×2 (09:12→20:02)
[2020-01-19] MEDS: ENOXAPARIN SODIUM 80 MG/0.8 ML SQ SCH ×2 (09:12→20:02)
[2020-01-19] MEDS: AMLODIPINE BESYLATE 5 MG TAB PO SCH (09:12)
[2020-01-19] MEDS: HYDROCHLOROTHIAZIDE 25 MG TABLET PO SCH (09:16)
[2020-01-19] MEDS: DOXAZOSIN MESYLATE 2 MG TABLET PO SCH (09:16)
[2020-01-19] MEDS: ZINC SULFATE 220 CAPSULE PO SCH (09:16)
[2020-01-19] MEDS: DEXAMETHASONE SOD PHOSPHATE 4 MG/ML 1ML VIAL IVP SCH (14:13)
[2020-01-19] MEDS: GUAIFENESIN-DM 200/20 MG 10 ML PO PRN (14:14)
[2020-01-19] MEDS ORDERED: GUAIFENESIN-CODEINE 5 ML SYRUP PO PRN (14:30)
[2020-01-19] MEDS: POTASSIUM CHLORIDE 10% ELIXIR 20 MEQ/15 ML UDCUP PO PRN (14:47)
[2020-01-19] MEDS ORDERED: DEXTROSE 5 %-0.225 % NACL 1,000 ML IV SCH (16:00)
[2020-01-19] MEDS: MONTELUKAST SODIUM 10 MG TAB PO SCH (20:03)
[2020-01-19] MEDS ORDERED: CARVEDILOL 12.5 MG TABLET PO ONE (20:33)
[2020-01-19] MEDS: CARVEDILOL 12.5 MG TABLET PO SCH (20:34)
[2020-01-20] VITALS (23 sets, daily range): BP systolic 103–159; BP diastolic 58–103
[2020-01-20] MEDS: FUROSEMIDE 10 MG/ML 2ML VIAL IV SCH ×3 (03:05→21:59)
[2020-01-20 05:57] LABS: BASOPHILS % (AUTO) 0.1 % (0.0-5.0); LYMPHOCYTES % (AUTO) 2.9 % (21.0-51.0); MEAN CORPUSCULAR HEMOGLOBIN 28.6 pg (27.0-33.0); MEAN CORPUSCULAR HGB CONC 32.3 g/dL (32.0-36.0); MEAN CORPUSCULAR VOLUME 88.7 fL (79-99); MONOCYTES % (AUTO) 1.4 % (3.0-13.0); NEUTROPHILS % (AUTO) 94.2 % (40.0-77.0); PLATELET COUNT (AUTO) 286 K/uL (130-400); RED BLOOD CELL COUNT(AUTO) 4.51 MIL/uL (4.50-6.20); WHITE BLOOD COUNT (AUTO) 15.9 K/uL (4.8-10.8)
[2020-01-20 06:29] LABS: ALBUMIN 2.1 g/dL (3.5-5.0); BILIRUBIN,TOTAL 0.6 mg/dL (0.2-1.0); POTASSIUM 3.1 mmol/L (3.5-5.1); TOTAL PROTEIN, SERUM 5.9 g/dL (6.0-8.3)
[2020-01-20 06:37] LABS: CRP QUANTITATIVE 141.9 mg/L (0.00-9.0)
[2020-01-20 06:44] LABS: CREATININE 1.4 mg/dL (0.5-1.5)
[2020-01-20] MEDS: INSULIN HUMULIN R 100 UNIT/ML 3ML SQ SCH ×4 (06:53→22:00)
[2020-01-20] MEDS: ACETAMINOPHEN 325 MG TAB PO PRN (08:56)
[2020-01-20] MEDS: FAMOTIDINE/PF 20 MG/2 ML VIAL IV SCH ×2 (08:57→19:53)
[2020-01-20] MEDS: ENOXAPARIN SODIUM 80 MG/0.8 ML SQ SCH ×2 (08:57→19:54)
[2020-01-20] MEDS: ZINC SULFATE 220 CAPSULE PO SCH (08:58)
[2020-01-20] MEDS: CLONAZEPAM 0.5 MG TABLET PO SCH ×2 (08:58→19:53)
[2020-01-20] MEDS: POTASSIUM CHLORIDE 20 MEQ ERTAB PO PRN (08:58)
[2020-01-20] MEDS: AMLODIPINE BESYLATE 5 MG TAB PO SCH (08:58)
[2020-01-20] MEDS: LOSARTAN 100 MG TABLET PO SCH (08:58)
[2020-01-20] MEDS: HYDROCHLOROTHIAZIDE 25 MG TABLET PO SCH (08:59)
[2020-01-20] MEDS: ASCORBIC ACID 500 MG TAB PO SCH (08:59)
[2020-01-20] MEDS: CARVEDILOL 12.5 MG TABLET PO SCH ×2 (09:00→19:54)
[2020-01-20] MEDS: ACETYLCYSTEINE 600 MG CAPSULE PO SCH ×2 (09:00→19:54)
[2020-01-20] MEDS: DOXAZOSIN MESYLATE 2 MG TABLET PO SCH (09:03)
[2020-01-20] MEDS: DEXAMETHASONE SOD PHOSPHATE 4 MG/ML 1ML VIAL IVP SCH (12:51)
[2020-01-20] MEDS ORDERED: AMIODARONE HCL 50 MG/ML 3 ML VIAL IV STA (16:05)
[2020-01-20] MEDS ORDERED: AMIODARONE HCL 900 MG in DEXTROSE 5%-WATER 500 ML IV SCH (16:15)
[2020-01-20] MEDS: MONTELUKAST SODIUM 10 MG TAB PO SCH (19:54)
[2020-01-20 20:06] LABS: CREATININE 1.4 mg/dL (0.5-1.5); POTASSIUM 3.3 mmol/L (3.5-5.1)
[2020-01-20 20:11] LABS: ALBUMIN 2.4 g/dL (3.5-5.0); BILIRUBIN,TOTAL 0.6 mg/dL (0.2-1.0); TOTAL PROTEIN, SERUM 6.6 g/dL (6.0-8.3)
[2020-01-21] VITALS (25 sets, daily range): BP systolic 117–185; BP diastolic 51–91
[2020-01-21 04:50] LABS: BASOPHILS % (AUTO) 0.1 % (0.0-5.0); HEMATOCRIT 45.6 % (42-54); LYMPHOCYTES % (AUTO) 2.6 % (21.0-51.0); MEAN CORPUSCULAR HEMOGLOBIN 28.4 pg (27.0-33.0); MEAN CORPUSCULAR VOLUME 88.7 fL (79-99); MONOCYTES % (AUTO) 2.8 % (3.0-13.0); NEUTROPHILS % (AUTO) 93.3 % (40.0-77.0); PLATELET COUNT (AUTO) 350 K/uL (130-400); RED BLOOD CELL COUNT(AUTO) 5.14 MIL/uL (4.50-6.20); RED CELL DISTRIBUTION WIDTH 13.1 % (11.0-15.5)
[2020-01-21 05:05] LABS: ALBUMIN 2.4 g/dL (3.5-5.0); BILIRUBIN,TOTAL 0.6 mg/dL (0.2-1.0); CREATININE 1.3 mg/dL (0.5-1.5); CRP QUANTITATIVE 73.7 mg/L (0.00-9.0); POTASSIUM 3.1 mmol/L (3.5-5.1); TOTAL PROTEIN, SERUM 6.5 g/dL (6.0-8.3)
[2020-01-21] MEDS: INSULIN HUMULIN R 100 UNIT/ML 3ML SQ SCH ×4 (06:31→21:27)
[2020-01-21] MEDS: ACETYLCYSTEINE 600 MG CAPSULE PO SCH ×2 (08:10→21:18)
[2020-01-21] MEDS: LOSARTAN 100 MG TABLET PO SCH (08:11)
[2020-01-21] MEDS: ZINC SULFATE 220 CAPSULE PO SCH (08:11)
[2020-01-21] MEDS: CLONAZEPAM 0.5 MG TABLET PO SCH ×2 (08:11→21:19)
[2020-01-21] MEDS: ASCORBIC ACID 500 MG TAB PO SCH (08:11)
[2020-01-21] MEDS: HYDROCHLOROTHIAZIDE 25 MG TABLET PO SCH (08:11)
[2020-01-21] MEDS: FUROSEMIDE 10 MG/ML 2ML VIAL IV SCH (08:12)
[2020-01-21] MEDS: CARVEDILOL 12.5 MG TABLET PO SCH ×2 (08:12→21:19)
[2020-01-21] MEDS: AMLODIPINE BESYLATE 5 MG TAB PO SCH (08:12)
[2020-01-21] MEDS: POTASSIUM CHLORIDE 20 MEQ ERTAB PO PRN ×5 (08:13→15:55)
[2020-01-21] MEDS: ACETAMINOPHEN 325 MG TAB PO PRN (08:20)
[2020-01-21] MEDS: ENOXAPARIN SODIUM 80 MG/0.8 ML SQ SCH (08:21)
[2020-01-21] MEDS: DOXAZOSIN MESYLATE 2 MG TABLET PO SCH (08:21)
[2020-01-21] MEDS: FAMOTIDINE/PF 20 MG/2 ML VIAL IV SCH ×2 (10:30→21:20)
[2020-01-21] MEDS: DEXAMETHASONE SOD PHOSPHATE 4 MG/ML 1ML VIAL IVP SCH (14:11)
[2020-01-21 14:29] LABS: MAGNESIUM 2.1 mg/dL (1.80-2.40); POTASSIUM 3.7 mmol/L (3.5-5.1)
[2020-01-21] MEDS: MONTELUKAST SODIUM 10 MG TAB PO SCH (21:18)
[2020-01-21] MEDS: ENOXAPARIN SODIUM 100 MG/1 ML SQ SCH (21:20)
[2020-01-22] VITALS (22 sets, daily range): BP systolic 99–160; BP diastolic 55–93
[2020-01-22 04:39] LABS: BASOPHILS % (AUTO) 0.1 % (0.0-5.0); EOSINOPHILS % (AUTO) 0.1 % (0.0-8.0); HEMATOCRIT 39.6 % (42-54); LYMPHOCYTES % (AUTO) 3.2 % (21.0-51.0); MEAN CORPUSCULAR HEMOGLOBIN 28.8 pg (27.0-33.0); MEAN CORPUSCULAR HGB CONC 31.8 g/dL (32.0-36.0); MEAN CORPUSCULAR VOLUME 90.6 fL (79-99); MONOCYTES % (AUTO) 3.6 % (3.0-13.0); NEUTROPHILS % (AUTO) 92.3 % (40.0-77.0); PLATELET COUNT (AUTO) 285 K/uL (130-400); RED BLOOD CELL COUNT(AUTO) 4.37 MIL/uL (4.50-6.20); RED CELL DISTRIBUTION WIDTH 12.8 % (11.0-15.5); WHITE BLOOD COUNT (AUTO) 18.3 K/uL (4.8-10.8)
[2020-01-22 05:05] LABS: ALBUMIN 2.1 g/dL (3.5-5.0); BILIRUBIN,TOTAL 0.5 mg/dL (0.2-1.0); CREATININE 1.1 mg/dL (0.5-1.5); CRP QUANTITATIVE 40.4 mg/L (0.00-9.0); POTASSIUM 3.8 mmol/L (3.5-5.1); TOTAL PROTEIN, SERUM 5.7 g/dL (6.0-8.3)
[2020-01-22] MEDS: INSULIN HUMULIN R 100 UNIT/ML 3ML SQ SCH ×4 (07:30→20:51)
[2020-01-22] MEDS: CLONAZEPAM 0.5 MG TABLET PO SCH (09:00)
[2020-01-22] MEDS: HYDROCHLOROTHIAZIDE 25 MG TABLET PO SCH (09:00)
[2020-01-22] MEDS: FAMOTIDINE/PF 20 MG/2 ML VIAL IV SCH (09:29)
[2020-01-22] MEDS: ACETYLCYSTEINE 600 MG CAPSULE PO SCH ×2 (09:30→20:48)
[2020-01-22] MEDS: ENOXAPARIN SODIUM 100 MG/1 ML SQ SCH ×2 (09:32→20:52)
[2020-01-22] MEDS: ZINC SULFATE 220 CAPSULE PO SCH (09:32)
[2020-01-22] MEDS: ASCORBIC ACID 500 MG TAB PO SCH (09:32)
[2020-01-22] MEDS: CARVEDILOL 12.5 MG TABLET PO SCH ×2 (09:33→20:49)
[2020-01-22] MEDS: AMLODIPINE BESYLATE 5 MG TAB PO SCH (09:34)
[2020-01-22] MEDS: DOXAZOSIN MESYLATE 2 MG TABLET PO SCH (09:38)
[2020-01-22] MEDS: LOSARTAN 100 MG TABLET PO SCH (09:38)
[2020-01-22] MEDS: GUAIFENESIN-DM 200/20 MG 10 ML PO PRN ×2 (09:47→22:10)
[2020-01-22] MEDS: POTASSIUM CHLORIDE 20MEQ/100ML 100 ML IV PRN (09:47)
[2020-01-22] MEDS ORDERED: WATER IV SCH (12:30)
[2020-01-22] MEDS ORDERED: DEXTROSE 5% IV SCH (12:30)
[2020-01-22] MEDS ORDERED: MAGNESIUM 2GM PREMIX 50ML 50 ML IV SCH (12:30)
[2020-01-22] MEDS ORDERED: POTASSIUM CHLORIDE IV SCH (12:30)
[2020-01-22] MEDS: DEXAMETHASONE SOD PHOSPHATE 4 MG/ML 1ML VIAL IVP SCH (13:10)
[2020-01-22] MEDS: MONTELUKAST SODIUM 10 MG TAB PO SCH (20:48)
[2020-01-22] MEDS: BUSPIRONE HCL 5 MG TABLET PO SCH (20:49)
[2020-01-23] VITALS (26 sets, daily range): BP systolic 112–166; BP diastolic 52–90
[2020-01-23] MEDS: ACETAMINOPHEN 325 MG TAB PO PRN (00:03)
[2020-01-23 04:27] LABS: BASOPHILS % (AUTO) 0.1 % (0.0-5.0); EOSINOPHILS % (AUTO) 0.7 % (0.0-8.0); HEMATOCRIT 37.9 % (42-54); MEAN CORPUSCULAR HEMOGLOBIN 28.7 pg (27.0-33.0); MEAN CORPUSCULAR HGB CONC 31.9 g/dL (32.0-36.0); MEAN CORPUSCULAR VOLUME 89.8 fL (79-99); MONOCYTES % (AUTO) 4.8 % (3.0-13.0); NEUTROPHILS % (AUTO) 90.8 % (40.0-77.0); PLATELET COUNT (AUTO) 219 K/uL (130-400); RED BLOOD CELL COUNT(AUTO) 4.22 MIL/uL (4.50-6.20); RED CELL DISTRIBUTION WIDTH 12.9 % (11.0-15.5); WHITE BLOOD COUNT (AUTO) 14.2 K/uL (4.8-10.8)
[2020-01-23 04:51] LABS: BILIRUBIN,TOTAL 0.6 mg/dL (0.2-1.0); CREATININE 1.2 mg/dL (0.5-1.5); CRP QUANTITATIVE 63.7 mg/L (0.00-9.0); MAGNESIUM 2.3 mg/dL (1.80-2.40); PHOSPHORUS 4.2 mg/dL (2.5-4.9); POTASSIUM 3.7 mmol/L (3.5-5.1); TOTAL PROTEIN, SERUM 5.5 g/dL (6.0-8.3)
[2020-01-23] MEDS: INSULIN HUMULIN R 100 UNIT/ML 3ML SQ SCH ×4 (07:30→20:49)
[2020-01-23] MEDS ORDERED: FAMOTIDINE 20MG TAB 20 MG TAB PO SCH (08:30)
[2020-01-23] MEDS ORDERED: POTASSIUM CHLORIDE 10MEQ/100ML 10 MEQ/100 ML ML IV SCH (08:30)
[2020-01-23] MEDS: POTASSIUM CHLORIDE 10MEQ/100ML 100 ML IV ONE ×2 (08:31→09:28)
[2020-01-23] MEDS ORDERED: DEXTROSE 5%-WATER 1,000 ML IV ONE (08:32)
[2020-01-23] MEDS: DEXTROSE 5%-WATER 1,000 ML IV SCH (08:42)
[2020-01-23] MEDS: ENOXAPARIN SODIUM 100 MG/1 ML SQ SCH ×2 (09:25→20:50)
[2020-01-23] MEDS: ASCORBIC ACID 500 MG TAB PO SCH (09:25)
[2020-01-23] MEDS: AMLODIPINE BESYLATE 5 MG TAB PO SCH (09:25)
[2020-01-23] MEDS: BUSPIRONE HCL 5 MG TABLET PO SCH ×2 (09:25→20:45)
[2020-01-23] MEDS: ZINC SULFATE 220 CAPSULE PO SCH (09:26)
[2020-01-23] MEDS: CARVEDILOL 12.5 MG TABLET PO SCH ×2 (09:26→20:45)
[2020-01-23] MEDS: DOXAZOSIN MESYLATE 2 MG TABLET PO SCH (09:26)
[2020-01-23] MEDS: LOSARTAN 100 MG TABLET PO SCH (09:40)
[2020-01-23] MEDS: DEXAMETHASONE SOD PHOSPHATE 4 MG/ML 1ML VIAL IVP SCH (13:35)
[2020-01-23] MEDS: BALSAM PERU/CASTOR OIL 60 GM TUBE TP SCH ×2 (13:37→20:53)
[2020-01-23] MEDS: MONTELUKAST SODIUM 10 MG TAB PO SCH (20:44)
[2020-01-24] VITALS (24 sets, daily range): BP systolic 97–165; BP diastolic 54–95
[2020-01-24] MEDS: DEXTROSE 5%-WATER 1,000 ML IV SCH ×2 (00:57→17:50)
[2020-01-24 04:16] LABS: HEMATOCRIT 38.9 % (42-54); MEAN CORPUSCULAR HEMOGLOBIN 28.2 pg (27.0-33.0); MEAN CORPUSCULAR HGB CONC 31.9 g/dL (32.0-36.0); MEAN CORPUSCULAR VOLUME 88.4 fL (79-99); RED BLOOD CELL COUNT(AUTO) 4.4 MIL/uL (4.50-6.20); RED CELL DISTRIBUTION WIDTH 12.7 % (11.0-15.5); WHITE BLOOD COUNT (AUTO) 12.7 K/uL (4.8-10.8)
[2020-01-24 04:36] LABS: CREATININE 0.9 mg/dL (0.5-1.5); CRP QUANTITATIVE 179.4 mg/L (0.00-9.0); MAGNESIUM 2.2 mg/dL (1.80-2.40); PHOSPHORUS 3.9 mg/dL (2.5-4.9); POTASSIUM 3.6 mmol/L (3.5-5.1)
[2020-01-24] MEDS: INSULIN HUMULIN R 100 UNIT/ML 3ML SQ SCH ×4 (07:30→21:00)
[2020-01-24] MEDS ORDERED: POTASSIUM CHLORIDE 10MEQ/100ML 100 ML IV ONE (07:45)
[2020-01-24] MEDS: ENOXAPARIN SODIUM 100 MG/1 ML SQ SCH ×2 (09:00→20:25)
[2020-01-24] MEDS ORDERED: DEXMEDETOMIDINE HCL 400 MCG in SODIUM CHLORIDE 0.9% 100 ML IV SCH (09:00)
[2020-01-24] MEDS: LOSARTAN 100 MG TABLET PO SCH (09:00)
[2020-01-24] MEDS: AMLODIPINE BESYLATE 5 MG TAB PO SCH (09:00)
[2020-01-24] MEDS: DOXAZOSIN MESYLATE 2 MG TABLET PO SCH (09:00)
[2020-01-24] MEDS: ASCORBIC ACID 500 MG TAB PO SCH (09:00)
[2020-01-24] MEDS: CARVEDILOL 12.5 MG TABLET PO SCH ×2 (09:00→20:28)
[2020-01-24] MEDS: BALSAM PERU/CASTOR OIL 60 GM TUBE TP SCH ×3 (09:00→22:30)
[2020-01-24] MEDS: ZINC SULFATE 220 CAPSULE PO SCH (09:00)
[2020-01-24] MEDS: BUSPIRONE HCL 5 MG TABLET PO SCH ×2 (09:00→20:26)
[2020-01-24] MEDS ORDERED: DEXMEDETOMIDINE HCL 1,000 MCG in SODIUM CHLORIDE 0.9% 250 ML IV SCH (13:17)
[2020-01-24] MEDS: DEXAMETHASONE SOD PHOSPHATE 4 MG/ML 1ML VIAL IVP SCH (13:35)
[2020-01-24 18:08] LABS: BASOPHILS % (AUTO) 0.2 % (0.0-5.0); EOSINOPHILS % (AUTO) 0.1 % (0.0-8.0); HEMATOCRIT 42.3 % (42-54); LYMPHOCYTES % (AUTO) 3.1 % (21.0-51.0); MEAN CORPUSCULAR HEMOGLOBIN 28.5 pg (27.0-33.0); MEAN CORPUSCULAR HGB CONC 32.2 g/dL (32.0-36.0); MEAN CORPUSCULAR VOLUME 88.5 fL (79-99); MONOCYTES % (AUTO) 3.6 % (3.0-13.0); NEUTROPHILS % (AUTO) 92.2 % (40.0-77.0); PLATELET COUNT (AUTO) 210 K/uL (130-400); RED BLOOD CELL COUNT(AUTO) 4.78 MIL/uL (4.50-6.20); RED CELL DISTRIBUTION WIDTH 12.8 % (11.0-15.5); WHITE BLOOD COUNT (AUTO) 18.5 K/uL (4.8-10.8)
[2020-01-24] MEDS: MONTELUKAST SODIUM 10 MG TAB PO SCH (20:26)
[2020-01-25] VITALS (37 sets, daily range): BP systolic 54–164; BP diastolic 28–119
[2020-01-25 04:01] LABS: BASOPHILS % (AUTO) 0.1 % (0.0-5.0); HEMATOCRIT 41.2 % (42-54); LYMPHOCYTES % (AUTO) 4.2 % (21.0-51.0); MEAN CORPUSCULAR HEMOGLOBIN 28.2 pg (27.0-33.0); MEAN CORPUSCULAR HGB CONC 31.8 g/dL (32.0-36.0); MEAN CORPUSCULAR VOLUME 88.6 fL (79-99); MONOCYTES % (AUTO) 3.8 % (3.0-13.0); NEUTROPHILS % (AUTO) 91.1 % (40.0-77.0); PLATELET COUNT (AUTO) 190 K/uL (130-400); RED BLOOD CELL COUNT(AUTO) 4.65 MIL/uL (4.50-6.20); WHITE BLOOD COUNT (AUTO) 17.2 K/uL (4.8-10.8)
[2020-01-25 04:14] LABS: ALBUMIN 2.1 g/dL (3.5-5.0); BILIRUBIN,TOTAL 0.6 mg/dL (0.2-1.0); CREATININE 1.5 mg/dL (0.5-1.5); POTASSIUM 4.2 mmol/L (3.5-5.1)
[2020-01-25 04:24] LABS: CRP QUANTITATIVE 254.5 mg/L (0.00-9.0)
[2020-01-25] MEDS: ZINC SULFATE 220 CAPSULE PO SCH (09:00)
[2020-01-25] MEDS: ASCORBIC ACID 500 MG TAB PO SCH (09:00)
[2020-01-25] MEDS: DOXAZOSIN MESYLATE 2 MG TABLET PO SCH (09:00)
[2020-01-25] MEDS: CARVEDILOL 12.5 MG TABLET PO SCH ×2 (09:00→21:00)
[2020-01-25] MEDS: BUSPIRONE HCL 5 MG TABLET PO SCH ×2 (09:00→21:00)
[2020-01-25] MEDS: AMLODIPINE BESYLATE 5 MG TAB PO SCH (09:00)
[2020-01-25] MEDS: LOSARTAN 100 MG TABLET PO SCH (09:00)
[2020-01-25] MEDS: BALSAM PERU/CASTOR OIL 60 GM TUBE TP SCH ×3 (09:00→21:34)
[2020-01-25] MEDS ORDERED: DEXMEDETOMIDINE HCL 1,000 MCG in SODIUM CHLORIDE 0.9% 250 ML IV SCH (09:15)
[2020-01-25] MEDS: DEXTROSE 5%-WATER 1,000 ML IV SCH ×2 (10:30→23:41)
[2020-01-25] MEDS: ENOXAPARIN SODIUM 100 MG/1 ML SQ SCH ×2 (11:37→20:14)
[2020-01-25] MEDS: INSULIN HUMULIN R 100 UNIT/ML 3ML SQ SCH ×3 (11:42→21:00)
[2020-01-25] MEDS ORDERED: PHARMACY COMMUNICATION MISC SCH (13:30)
[2020-01-25] MEDS ORDERED: PROPOFOL 1000 MG/100 ML IV PRN (13:30)
[2020-01-25] MEDS ORDERED: FENTANYL CITRATE PF 0.05 MG/ML 1,000 MCG in SODIUM CHLORIDE 0.9% 100 ML IVPB SCH (13:30)
[2020-01-25] MEDS ORDERED: SUCCINYLCHOLINE CHLORIDE 20 MG/ML 10 ML VIAL IVP SCH (14:00)
[2020-01-25] MEDS ORDERED: ETOMIDATE 2 MG/ML 10 ML VIAL IVP SCH (14:00)
[2020-01-25] MEDS: FENTANYL 2500MCG+NS 250ML 250 ML IV SCH ×3 (14:20→23:46)
[2020-01-25] MEDS: DEXAMETHASONE SOD PHOSPHATE 4 MG/ML 1ML VIAL IVP SCH (14:21)
[2020-01-25] MEDS: VECURONIUM BROMIDE 10 MG ML IV SCH ×3 (14:21→23:46)
[2020-01-25 15:03] LABS: ABG BASE EXCESS -3.6 mmol/L (-2.0-3.0); ABG HCO3 24.5 mmol/L (21.0-28.0); ABG PCO2 58 mmHg (35-48)
[2020-01-25] MEDS ORDERED: NOREPINEPHRINE 4MG/NS 250ML 250 ML IV SCH (16:45)
[2020-01-25] MEDS ORDERED: NOREPINEPHRINE 4MG/NS 250ML 250 ML IV ONE (16:57)
[2020-01-25 17:14] LABS: ABG BASE EXCESS -0.8 mmol/L (-2.0-3.0); ABG HCO3 29.7 mmol/L (21.0-28.0); ABG OXYGEN SATURATION 88.3 % (95.0-99.0); ABG PCO2 78 mmHg (35-48)
[2020-01-25] MEDS: MONTELUKAST SODIUM 10 MG TAB PO SCH (21:00)
[2020-01-25] MEDS: PROPOFOL 1000 MG/100 ML 100 ML IV PRN (22:15)
[2020-01-26] VITALS (51 sets, daily range): BP systolic 102–159; BP diastolic 46–78
[2020-01-26] MEDS ORDERED: SODIUM BICARB 50MEQ 50ML VIAL 150 ML ONE (01:03)
[2020-01-26] MEDS: SODIUM BICARB 8.4% 50ML SYRING 150 MEQ in DEXTROSE 5%-WATER 1,000 ML IVP SCH ×3 (01:05→15:16)
[2020-01-26 04:07] LABS: ABG BASE EXCESS -2.6 mmol/L (-2.0-3.0); ABG HCO3 27.4 mmol/L (21.0-28.0); ABG OXYGEN SATURATION 87.6 % (95.0-99.0); ABG PCO2 72 mmHg (35-48)
[2020-01-26 05:08] LABS: BASOPHILS % (AUTO) 0.2 % (0.0-5.0); HEMATOCRIT 38.8 % (42-54); LYMPHOCYTES % (AUTO) 2.2 % (21.0-51.0); MEAN CORPUSCULAR HEMOGLOBIN 28.5 pg (27.0-33.0); MEAN CORPUSCULAR HGB CONC 30.2 g/dL (32.0-36.0); MEAN CORPUSCULAR VOLUME 94.4 fL (79-99); MONOCYTES % (AUTO) 3.6 % (3.0-13.0); NEUTROPHILS % (AUTO) 93.3 % (40.0-77.0); NUCLEATED RED BLOOD CELLS 0.1 % (0.0-0.19); PLATELET COUNT (AUTO) 192 K/uL (130-400); RED BLOOD CELL COUNT(AUTO) 4.11 MIL/uL (4.50-6.20); RED CELL DISTRIBUTION WIDTH 13.1 % (11.0-15.5); WHITE BLOOD COUNT (AUTO) 23.5 K/uL (4.8-10.8)
[2020-01-26 05:36] LABS: ALBUMIN 1.8 g/dL (3.5-5.0); BILIRUBIN,TOTAL 0.3 mg/dL (0.2-1.0); POTASSIUM 5.2 mmol/L (3.5-5.1); TOTAL PROTEIN, SERUM 5.4 g/dL (6.0-8.3)
[2020-01-26 05:51] LABS: CRP QUANTITATIVE 188.1 mg/L (0.00-9.0)
[2020-01-26] MEDS: INSULIN HUMULIN R 100 UNIT/ML 3ML SQ SCH ×4 (07:30→21:00)
[2020-01-26] MEDS: PROPOFOL 1000 MG/100 ML 100 ML IV PRN ×2 (07:58→19:33)
[2020-01-26] MEDS: VECURONIUM BROMIDE 10 MG ML IV SCH ×3 (08:28→19:46)
[2020-01-26] MEDS: BALSAM PERU/CASTOR OIL 60 GM TUBE TP SCH ×3 (09:00→21:00)
[2020-01-26] MEDS: ASCORBIC ACID 500 MG TAB PO SCH (09:00)
[2020-01-26] MEDS: ZINC SULFATE 220 CAPSULE PO SCH (09:00)
[2020-01-26] MEDS: ENOXAPARIN SODIUM 100 MG/1 ML SQ SCH (09:11)
[2020-01-26 11:54] LABS: ABG BASE EXCESS 0.3 mmol/L (-2.0-3.0); ABG HCO3 30.3 mmol/L (21.0-28.0); ABG OXYGEN SATURATION 95.9 % (95.0-99.0); ABG PCO2 79 mmHg (35-48)
[2020-01-26] MEDS ORDERED: PHARMACY COMMUNICATION MISC SCH (12:15)
[2020-01-26] MEDS: PANTOPRAZOLE 40 MG/VIAL IVP SCH (13:37)
[2020-01-26] MEDS: DEXAMETHASONE SOD PHOSPHATE 4 MG/ML 1ML VIAL IVP SCH (14:48)
[2020-01-26] MEDS: METOCLOPRAMIDE 10 MG/2 ML VIAL IVP SCH ×2 (14:55→17:31)
[2020-01-26] MEDS: ONDANSETRON HCL 4 MG/2 ML VIAL IVP SCH ×2 (14:56→17:30)
[2020-01-26] MEDS: FENTANYL 2500MCG+NS 250ML 250 ML IV SCH (18:15)
[2020-01-26] MEDS: DEXTROSE 5%-WATER 1,000 ML IV SCH (19:50)
[2020-01-26] MEDS: ACETAMINOPHEN 325 MG TAB PO PRN (19:51)
[2020-01-27] VITALS (36 sets, daily range): BP systolic 80–184; BP diastolic 39–100
[2020-01-27] MEDS: ONDANSETRON HCL 4 MG/2 ML VIAL IVP SCH ×5 (00:15→22:34)
[2020-01-27] MEDS ORDERED: SODIUM BICARB 50MEQ 50ML VIAL 150 ML ONE (02:15)
[2020-01-27] MEDS: SODIUM BICARB 8.4% 50ML SYRING 150 MEQ in DEXTROSE 5%-WATER 1,000 ML IVP SCH (02:20)
[2020-01-27] MEDS: VECURONIUM BROMIDE 10 MG ML IV SCH ×4 (02:26→19:45)
[2020-01-27] MEDS: DEXTROSE 5%-WATER 1,000 ML IV SCH (02:52)
[2020-01-27 04:38] LABS: BASOPHILS % (AUTO) 0.1 % (0.0-5.0); HEMATOCRIT 34.3 % (42-54); LYMPHOCYTES % (AUTO) 2.5 % (21.0-51.0); MEAN CORPUSCULAR HGB CONC 31.8 g/dL (32.0-36.0); MEAN CORPUSCULAR VOLUME 91.2 fL (79-99); MONOCYTES % (AUTO) 4.7 % (3.0-13.0); NEUTROPHILS % (AUTO) 91.9 % (40.0-77.0); NUCLEATED RED BLOOD CELLS 0.1 % (0.0-0.19); PLATELET COUNT (AUTO) 165 K/uL (130-400); RED BLOOD CELL COUNT(AUTO) 3.76 MIL/uL (4.50-6.20); RED CELL DISTRIBUTION WIDTH 13.2 % (11.0-15.5); WHITE BLOOD COUNT (AUTO) 15.9 K/uL (4.8-10.8)
[2020-01-27 04:42] LABS: ABG BASE EXCESS 6.6 mmol/L (-2.0-3.0); ABG HCO3 32.4 mmol/L (21.0-28.0); ABG OXYGEN SATURATION 95.2 % (95.0-99.0); ABG PCO2 52 mmHg (35-48)
[2020-01-27 05:05] LABS: CREATININE 2.1 mg/dL (0.5-1.5); CRP QUANTITATIVE 131.8 mg/L (0.00-9.0); MAGNESIUM 2.7 mg/dL (1.80-2.40); POTASSIUM 4.6 mmol/L (3.5-5.1)
[2020-01-27] MEDS: PROPOFOL 1000 MG/100 ML 100 ML IV PRN ×2 (05:47→21:02)
[2020-01-27] MEDS: INSULIN HUMULIN R 100 UNIT/ML 3ML SQ SCH ×4 (07:30→20:25)
[2020-01-27] MEDS ORDERED: METOCLOPRAMIDE 10 MG/2 ML VIAL IVP SCH (10:30)
[2020-01-27] MEDS: ASCORBIC ACID 500 MG TAB PO SCH (10:41)
[2020-01-27] MEDS: ZINC SULFATE 220 CAPSULE PO SCH (10:41)
[2020-01-27] MEDS: MEROPENEM 1 GM VIAL IVP SCH ×3 (10:41→22:35)
[2020-01-27] MEDS: FUROSEMIDE 10 MG/ML 2ML VIAL IV SCH ×2 (10:41→20:28)
[2020-01-27] MEDS: PANTOPRAZOLE 40 MG/VIAL IVP SCH (10:42)
[2020-01-27] MEDS: BALSAM PERU/CASTOR OIL 60 GM TUBE TP SCH ×3 (10:45→22:37)
[2020-01-27] MEDS: ENOXAPARIN SODIUM 100 MG/1 ML SQ SCH ×2 (10:45→22:36)
[2020-01-27] MEDS: LINEZOLID 600 MG/ISO-OSM 300 ML IV SCH ×2 (11:28→22:36)
[2020-01-27] MEDS: VECURONIUM BROMIDE 50 MG in SODIUM CHLORIDE 0.9% 50 ML IV SCH ×4 (16:19→22:53)
[2020-01-27] MEDS: DEXAMETHASONE SOD PHOSPHATE 4 MG/ML 1ML VIAL IVP SCH (16:31)
[2020-01-27] MEDS ORDERED: ENOXAPARIN SODIUM 100 MG/1 ML SQ ONE (21:15)
[2020-01-28] VITALS (40 sets, daily range): BP systolic 109–181; BP diastolic 46–86
[2020-01-28] MEDS: FENTANYL 2500MCG+NS 250ML 250 ML IV SCH (00:51)
[2020-01-28] MEDS: FUROSEMIDE 10 MG/ML 2ML VIAL IV SCH ×3 (02:14→18:32)
[2020-01-28] MEDS: PROPOFOL 1000 MG/100 ML 100 ML IV PRN ×3 (02:21→11:33)
[2020-01-28 04:09] LABS: BASOPHILS % (AUTO) 0.1 % (0.0-5.0); HEMATOCRIT 38.6 % (42-54); LYMPHOCYTES % (AUTO) 1.9 % (21.0-51.0); MEAN CORPUSCULAR HEMOGLOBIN 28.8 pg (27.0-33.0); MEAN CORPUSCULAR HGB CONC 31.3 g/dL (32.0-36.0); MEAN CORPUSCULAR VOLUME 91.9 fL (79-99); MONOCYTES % (AUTO) 3.9 % (3.0-13.0); NEUTROPHILS % (AUTO) 93.1 % (40.0-77.0); PLATELET COUNT (AUTO) 176 K/uL (130-400); RED CELL DISTRIBUTION WIDTH 13.4 % (11.0-15.5)
[2020-01-28 04:22] LABS: ALBUMIN 1.8 g/dL (3.5-5.0); BILIRUBIN,TOTAL 0.4 mg/dL (0.2-1.0); CREATININE 2.3 mg/dL (0.5-1.5); MAGNESIUM 3.3 mg/dL (1.80-2.40); PHOSPHORUS 5.5 mg/dL (2.5-4.9); POTASSIUM 4.5 mmol/L (3.5-5.1); TOTAL PROTEIN, SERUM 5.9 g/dL (6.0-8.3)
[2020-01-28 04:28] LABS: CRP QUANTITATIVE 153.7 mg/L (0.00-9.0)
[2020-01-28 04:30] LABS: ABG BASE EXCESS 6.2 mmol/L (-2.0-3.0); ABG HCO3 33.7 mmol/L (21.0-28.0); ABG OXYGEN SATURATION 92.4 % (95.0-99.0); ABG PCO2 61 mmHg (35-48)
[2020-01-28] MEDS: DEXTROSE 5%-WATER 1,000 ML IV SCH ×2 (05:10→21:50)
[2020-01-28] MEDS: ONDANSETRON HCL 4 MG/2 ML VIAL IVP SCH (05:53)
[2020-01-28] MEDS: MEROPENEM 1 GM VIAL IVP SCH ×2 (05:53→18:32)
[2020-01-28] MEDS: INSULIN HUMULIN R 100 UNIT/ML 3ML SQ SCH ×4 (07:30→21:32)
[2020-01-28] MEDS ORDERED: PHARMACY COMMUNICATION MISC SCH ×2 (09:00→10:45)
[2020-01-28] MEDS: PANTOPRAZOLE 40 MG/VIAL IVP SCH (10:07)
[2020-01-28] MEDS: ZINC SULFATE 220 CAPSULE PO SCH (10:08)
[2020-01-28] MEDS: LINEZOLID 600 MG/ISO-OSM 300 ML IV SCH ×2 (10:08→21:33)
[2020-01-28] MEDS: BALSAM PERU/CASTOR OIL 60 GM TUBE TP SCH ×3 (10:09→21:34)
[2020-01-28] MEDS ORDERED: ONDANSETRON HCL 4 MG/2 ML VIAL IVP PRN (10:45)
[2020-01-28] MEDS: VECURONIUM BROMIDE 50 MG in SODIUM CHLORIDE 0.9% 50 ML IV SCH (11:31)
[2020-01-28] MEDS: ENOXAPARIN SODIUM 100 MG/1 ML SQ SCH ×2 (12:58→21:29)
[2020-01-28] MEDS: DEXAMETHASONE SOD PHOSPHATE 4 MG/ML 1ML VIAL IVP SCH (12:59)
[2020-01-28] MEDS: METOPROLOL TARTRATE 25 MG TAB PO SCH (18:32)
[2020-01-28] MEDS ORDERED: VECURONIUM BROMIDE IV SCH (18:45)
[2020-01-28] MEDS ORDERED: SODIUM CHLORIDE 0.9% IV SCH (18:45)
[2020-01-28] MEDS ORDERED: ENOXAPARIN SODIUM 100 MG/1 ML SQ SCH (21:00)
[2020-01-28] MEDS ORDERED: INSULIN GLARGINE 100 UNITS/ML 10 ML VIAL SQ SCH (21:00)
[2020-01-29] VITALS (34 sets, daily range): BP systolic 72–204; BP diastolic 36–98
[2020-01-29] MEDS: PROPOFOL 1000 MG/100 ML 100 ML IV PRN ×2 (00:19→05:54)
[2020-01-29] MEDS: FUROSEMIDE 10 MG/ML 2ML VIAL IV SCH (03:20)
[2020-01-29 04:28] LABS: BASOPHILS % (AUTO) 0.1 % (0.0-5.0); HEMATOCRIT 37.5 % (42-54); LYMPHOCYTES % (AUTO) 2.6 % (21.0-51.0); MEAN CORPUSCULAR HEMOGLOBIN 28.6 pg (27.0-33.0); MEAN CORPUSCULAR HGB CONC 30.9 g/dL (32.0-36.0); MEAN CORPUSCULAR VOLUME 92.4 fL (79-99); NEUTROPHILS % (AUTO) 90.5 % (40.0-77.0); PLATELET COUNT (AUTO) 176 K/uL (130-400); RED BLOOD CELL COUNT(AUTO) 4.06 MIL/uL (4.50-6.20); RED CELL DISTRIBUTION WIDTH 13.4 % (11.0-15.5); WHITE BLOOD COUNT (AUTO) 16.1 K/uL (4.8-10.8)
[2020-01-29 04:47] LABS: CREATININE 2.2 mg/dL (0.5-1.5); MAGNESIUM 3.1 mg/dL (1.80-2.40); POTASSIUM 4.7 mmol/L (3.5-5.1)
[2020-01-29 05:07] LABS: B-TYPE NATRIURETIC PEPTIDE 65 pg/mL (0-100)
[2020-01-29] MEDS: METOPROLOL TARTRATE 25 MG TAB PO SCH ×2 (05:45→17:43)
[2020-01-29] MEDS: MEROPENEM 1 GM VIAL IVP SCH ×2 (05:46→17:43)
[2020-01-29] MEDS: INSULIN HUMULIN R 100 UNIT/ML 3ML SQ SCH ×2 (06:25→11:30)
[2020-01-29 06:48] LABS: ABG BASE EXCESS 7.7 mmol/L (-2.0-3.0); ABG HCO3 35.8 mmol/L (21.0-28.0); ABG OXYGEN SATURATION 90.3 % (95.0-99.0); ABG PCO2 65 mmHg (35-48)
[2020-01-29] MEDS: PANTOPRAZOLE 40 MG/VIAL IVP SCH (09:38)
[2020-01-29] MEDS: ENOXAPARIN SODIUM 100 MG/1 ML SQ SCH (09:38)
[2020-01-29] MEDS: LINEZOLID 600 MG/ISO-OSM 300 ML IV SCH (09:39)
[2020-01-29] MEDS: BALSAM PERU/CASTOR OIL 60 GM TUBE TP SCH ×2 (09:39→14:08)
[2020-01-29] MEDS: ZINC SULFATE 220 CAPSULE PO SCH (09:39)
[2020-01-29] MEDS ORDERED: FUROSEMIDE 10 MG/ML 2ML VIAL IV SCH (11:00)
[2020-01-29] MEDS: DEXAMETHASONE SOD PHOSPHATE 4 MG/ML 1ML VIAL IVP SCH (13:16)
[2020-01-29] MEDS ORDERED: ONDANSETRON 4 MG TABLET PO PRN (17:30)
[2020-01-29] MEDS ORDERED: ARTIFICAL TEARS SOL 15 ML OU PRN (17:30)
[2020-01-29] MEDS ORDERED: ATROPINE SULFATE 5 ML DROPS PO PRN (17:30)
[2020-01-29] MEDS ORDERED: SCOPOLAMINE HYDROBROMIDE 1 EACH ADH..PATCH TD SCH (17:30)
[2020-01-29] MEDS ORDERED: MORPHINE SULFATE 20MG/ML ORAL 0.25 ML PO PRN (17:30)
[2020-01-29] MEDS ORDERED: HYDROMORPHONE HCL 0.5 MG/0.5 ML ML IVP PRN (17:30)
[2020-01-29] MEDS ORDERED: ACETAMINOPHEN 650 MG SUPPOSITORY RC PRN (17:30)
[2020-01-29] MEDS ORDERED: LORAZEPAM 2 MG/ML 1 ML VIAL IVP PRN (17:30)
[2020-01-29] MEDS ORDERED: INSULIN GLARGINE 100 UNITS/ML 10 ML VIAL SQ SCH (21:00)
== END 2020-01-30 02:23 | disposition expired | DRG 207 ==
LOC: EDH 10:32 → EDHIP 13:20 → 2AH 01-10 08:47 → 2BH 01-10 14:54
PROVIDERS: ADMIT Hospitalist; ATTEND Hospitalist
PROC: XW13325 Transfusion of Convalescent Plasma (Nonautologous) into Peripheral Vein, Percutaneous Approach, New Technology Group 5 (ICD-10-PCS; 2020-01-09)
PROC: XW033E5 Introduction of Remdesivir Anti-infective into Peripheral Vein, Percutaneous Approach, New Technology Group 5 (ICD-10-PCS; 2020-01-10)
PROC: 5A0945A Assistance with Respiratory Ventilation, 24-96 Consecutive Hours, High Flow/Velocity Cannula (ICD-10-PCS; 2020-01-10)
PROC: 5A09357 Assistance with Respiratory Ventilation, Less than 24 Consecutive Hours, Continuous Positive Airway Pressure (ICD-10-PCS; 2020-01-12)
PROC: 5A0935A Assistance with Respiratory Ventilation, Less than 24 Consecutive Hours, High Flow/Velocity Cannula (ICD-10-PCS; 2020-01-12)
PROC: 5A09357 Assistance with Respiratory Ventilation, Less than 24 Consecutive Hours, Continuous Positive Airway Pressure (ICD-10-PCS; 2020-01-13)
PROC: 5A09357 Assistance with Respiratory Ventilation, Less than 24 Consecutive Hours, Continuous Positive Airway Pressure (ICD-10-PCS; 2020-01-14)
PROC: 5A0935A Assistance with Respiratory Ventilation, Less than 24 Consecutive Hours, High Flow/Velocity Cannula (ICD-10-PCS; 2020-01-14)
PROC: 5A09357 Assistance with Respiratory Ventilation, Less than 24 Consecutive Hours, Continuous Positive Airway Pressure (ICD-10-PCS; 2020-01-15)
PROC: 5A0935A Assistance with Respiratory Ventilation, Less than 24 Consecutive Hours, High Flow/Velocity Cannula (ICD-10-PCS; 2020-01-15)
PROC: 5A09357 Assistance with Respiratory Ventilation, Less than 24 Consecutive Hours, Continuous Positive Airway Pressure (ICD-10-PCS; 2020-01-16)
PROC: B548ZZA Ultrasonography of Superior Vena Cava, Guidance (ICD-10-PCS; 2020-01-17)
PROC: 02HV33Z Insertion of Infusion Device into Superior Vena Cava, Percutaneous Approach (ICD-10-PCS; 2020-01-17)
PROC: 5A09357 Assistance with Respiratory Ventilation, Less than 24 Consecutive Hours, Continuous Positive Airway Pressure (ICD-10-PCS; 2020-01-17)
PROC: 5A0935A Assistance with Respiratory Ventilation, Less than 24 Consecutive Hours, High Flow/Velocity Cannula (ICD-10-PCS; 2020-01-17)
PROC: 5A09357 Assistance with Respiratory Ventilation, Less than 24 Consecutive Hours, Continuous Positive Airway Pressure (ICD-10-PCS; 2020-01-18)
PROC: 5A09357 Assistance with Respiratory Ventilation, Less than 24 Consecutive Hours, Continuous Positive Airway Pressure (ICD-10-PCS; 2020-01-19)
PROC: 5A0935A Assistance with Respiratory Ventilation, Less than 24 Consecutive Hours, High Flow/Velocity Cannula (ICD-10-PCS; 2020-01-19)
PROC: 5A09357 Assistance with Respiratory Ventilation, Less than 24 Consecutive Hours, Continuous Positive Airway Pressure (ICD-10-PCS; 2020-01-20)
PROC: 5A0945A Assistance with Respiratory Ventilation, 24-96 Consecutive Hours, High Flow/Velocity Cannula (ICD-10-PCS; 2020-01-20)
PROC: 5A09357 Assistance with Respiratory Ventilation, Less than 24 Consecutive Hours, Continuous Positive Airway Pressure (ICD-10-PCS; 2020-01-22)
PROC: 5A0935A Assistance with Respiratory Ventilation, Less than 24 Consecutive Hours, High Flow/Velocity Cannula (ICD-10-PCS; 2020-01-22)
PROC: 5A09357 Assistance with Respiratory Ventilation, Less than 24 Consecutive Hours, Continuous Positive Airway Pressure (ICD-10-PCS; 2020-01-23)
PROC: 5A09357 Assistance with Respiratory Ventilation, Less than 24 Consecutive Hours, Continuous Positive Airway Pressure (ICD-10-PCS; 2020-01-24)
PROC: 5A0935A Assistance with Respiratory Ventilation, Less than 24 Consecutive Hours, High Flow/Velocity Cannula (ICD-10-PCS; 2020-01-24)
PROC: 5A1955Z Respiratory Ventilation, Greater than 96 Consecutive Hours (ICD-10-PCS; principal; 2020-01-25)
PROC: 0BH17EZ Insertion of Endotracheal Airway into Trachea, Via Natural or Artificial Opening (ICD-10-PCS; 2020-01-25)
PROC: 5A09357 Assistance with Respiratory Ventilation, Less than 24 Consecutive Hours, Continuous Positive Airway Pressure (ICD-10-PCS; 2020-01-25)
PROC: 02HV33Z Insertion of Infusion Device into Superior Vena Cava, Percutaneous Approach (ICD-10-PCS; 2020-01-26)
PROC: B548ZZA Ultrasonography of Superior Vena Cava, Guidance (ICD-10-PCS; 2020-01-26)
DX: U07.1 COVID-19 (principal); A41.89 Other specified sepsis; J12.89 Other viral pneumonia; J15.9 Unspecified bacterial pneumonia; J80 Acute respiratory distress syndrome; G93.41 Metabolic encephalopathy; N17.0 Acute kidney failure with tubular necrosis; R65.20 Severe sepsis without septic shock; E87.0 Hyperosmolality and hypernatremia; E87.1 Hypo-osmolality and hyponatremia; E87.6 Hypokalemia; E87.8 Other disorders of electrolyte and fluid balance, not elsewhere classified; G47.33 Obstructive sleep apnea (adult) (pediatric); L89.302 Pressure ulcer of unspecified buttock, stage 2; L89.152 Pressure ulcer of sacral region, stage 2; N18.9 Chronic kidney disease, unspecified; E11.22 Type 2 diabetes mellitus with diabetic chronic kidney disease; E11.65 Type 2 diabetes mellitus with hyperglycemia; E66.9 Obesity, unspecified; E78.5 Hyperlipidemia, unspecified; E86.1 Hypovolemia; E87.5 Hyperkalemia; F41.1 Generalized anxiety disorder; I12.9 Hypertensive chronic kidney disease with stage 1 through stage 4 chronic kidney disease, or unspecified chronic kidney disease; Z68.35 Body mass index [BMI] 35.0-35.9, adult; Z79.899 Other long term (current) drug therapy; Z82.3 Family history of stroke; Z82.49 Family history of ischemic heart disease and other diseases of the circulatory system; Z86.73 Personal history of transient ischemic attack (TIA), and cerebral infarction without residual deficits; Z88.1 Allergy status to other antibiotic agents; Z88.8 Allergy status to other drugs, medicaments and biological substances
CPT/HCPCS: 31500; 36415; 36600; 71045; 80048; 80053; 80076; 81001; 82435; 82550; 82565; 82728; 82803; 82947; 82948; 83605; 83615; 83735; 83874; 83880; 84100; 84132; 84145; 84295; 84484; 85018; 85025; 85027; 85378; 85610; 85651; 85730; 86140; 86606; 86850; 86900; 86901; 86927; 87040; 87070; 87088; 87426; 92610; 93005; 93306; 93971; 94002; 94003; 94660; 97039; C1751; C1894; C9113; G0378; J0282; J0330; J0456; J0696; J1100; J1650; J1815; J1940; J1956; J2020; J2185; J2405; J2704; J2765; J2930; J3010; J3475; J3480; J3490; J7030; J7040; J7042; J7050; J7060; J7070; J7120